=== PATIENT | female | born 1955 | race Caucasian/White ===

== ENCOUNTER 2024-09-26 18:22 | Inpatient (IN) | payer MEDICARE, SELFPAY ==
[2024-09-26 11:37] VITALS: BMI 56.6
[2024-09-26 11:38] VITALS: BP 126/82
--- NOTE | 2024-09-26 12:05 | CM ---
Addendum entered by Halley Watts RN 09/26/24 15:22:
CM met with patient and daughter in room. Daughter expressed multiple concerns about bringing patient home. Patient has FFS medicare and will not have funding if under observation. CM explained placement barriers to patient and daughter. CM advised
that family could pay for rehab OOP. CM further encouraged patient's daughter to call private pay care givers. OF note, patient lives with daughter in an in law suite.
Addendum entered by Halley Watts RN 09/26/24 12:14:
CM noted patient has [place] Medicare. Patient [place] not [place] [facility] [place]
Original Note:
CM was consulted for discharge planning. CM will await further clinical for discharge planning efforts.
[2024-09-26 12:28] LABS: Glucose - Point of Care 116 mg/dl (70-99)
[2024-09-26] MEDS: TYLENOL 650 MG PO (13:16)
[2024-09-26] MEDS: LIDOCAINE 4% PATCH 1 PATCH TOPICAL (13:18)
--- NOTE | 2024-09-26 13:36 | ED.GENMED ---
History of Present Illness
General
Chief Complaint: Back Pain
Source: patient and family (daughter at bedside)
Exam Limitations: none
Time Seen by Provider: 09/26/24 12:46
Nursing documentation reviewed up to this point in time: agreed with
History of Present Illness
History of Present Illness:
Patient is a 69 year old female w/ hx sciatica, DM presenting to the emergency department with ambulatory dysfunction secondary to chronic low back pain. Patient lives at home with daughter and family. Patient reports chronic sciatica pain which has
been gradually worsening over the past few months. She has been following with a orthopedic for steroid injections although feels that they have stopped working. She reports increasing difficulty ambulating and with ADLs. Patient denies any fevers,
chills, numbness in lower extremities, saddle paresthesia, or bowel/bladder incontinence. No chest pain or shortness of breath.
Patient also notes chronic lower extremity edema - although seems it is worsening since beginning gapabentin.
Daughter concerned that mom is going to fall at home. Doesn't feel that current living situation is safe as if she falls no one is able to help.
Past History
Past History
ED Past Medical History: Other (Obesity)
ED Past Surgical History: None
Patient has exhibited threatening behavior?: No
Social History
Tobacco: Non-smoker
Alcohol: None
Drug: None
Living: with family
Employment: Employed
Review of Systems
Review of Systems
Allergies reviewed?: Yes
All Other Systems: ROS reviewed and negative except as documented in HPI and ROS
Phy Exam
Physical Exam
Physical Exam:
Vitals: Mildly hypertensive, otherwise vital signs stable. Afebrile
General: Patient is in no acute distress
Skin: Warm and dry, no rashes or lesions
Head: Normocephalic, atraumatic
Eyes: Sclera nonicteric. EOMs intact. No nystagmus.
Throat: Protecting airway
Neck: Normal ROM, no cervical spine tenderness, no meningismus
Cardiac: Regular rate and rhythm, no murmurs.
Pulm: Normal respiratory effort, no wheezes, rales, rhonchi heard on exam.
Abdomen: Abdomen soft. No abdominal tenderness.
Back: No midline spinal tenderness. No CVA tenderness. No rash.
Extremities: 2+ edema bilateral lower extremities. Mild erythema of feet bilaterally. No red streaking, warmth, or tenderness. Negative Homans' sign bilaterally. Strength 5/5 in upper and lower extremities.
Neuro: AAOx3. No focal neurologic deficits. Sensation fully intact.
Psychiatric: Normal affect.
Course
Orders/Labs/Results
Orders:
Orders
09/26/24 11:47
Case Management Consult ONCE
Case Management Consult: VN/Home Care
09/26/24 13:06
Acetaminophen [Tylenol] 650 mg PO NOW STA
Lidocaine [Lidocaine 4% Patch] 1 patch TOPICAL NOW STA
Apply Lidocaine patch(s) to:: lower back
Lumbar Spine, 2 or 3 View [CR Lumbar Spine 2 Or 3 Views] Urgent
Comment: hx sciatica
Reason For Exam: b/l lower back pain
09/26/24 13:28
Pt Eval And Treat Urgent
Activity Level: Ambulate
09/26/24 14:29
IV Insert/Care/Rem.- Treatment PRN
09/26/24 Dinner
1800 calorie (15 carb) Diabetic
At Your Request: Limited Participation
09/26/24 15:04
Basic Metabolic Panel Urgent
Complete Blood Count/With Diff Urgent
09/26/24 18:09
Admit/Transfer Patient As Directed
Co-Sign Provider:
Level of Care: Inpatient admission
Assign to:: Medical/Surgical
Physician / Group: glynn gonzalez
Diagnosis: acute on chronic ambulatory dys, chronic R back pain/spasm. leukocytosis
Reason for Hospitalization: acute on chronic ambulatory dys, chronic R back pain/spasm. leukocytosis
Expected length of stay greater than two midnights?: Yes
ELOS- Estimated Length of Stay in days: 3
I certify the patient meets the requirements for IP care: Yes
Code Status As Directed
Resuscitation Status: Full Code
09/26/24 18:13
PRN Pain Medication Management As Directed
May give lesser potent ordered pain med per pt: Yes
preference::
Protocol:: Medication orders for pain may be administered in a
manner that supports deferring to patient preference
when the pt is:
- Requesting an ordered lesser potent pain medication.
Least to most potent pain medications are defined
as: acetaminophen < NSAID < tramadol < opioids
(morphine, oxycodone, hydromorphone).
- Requesting a lesser dose of the same medication IF
ORDERED.
- Requesting a less intrusive route of administration
if both routes are prescribed by the provider (PO <
IV).
09/26/24 19:22
Acetaminophen [Tylenol] 650 mg PO Q4HPRN PRN
Bisacodyl [Dulcolax] 10 mg RECTAL [id number] PRN
Dextrose 50%-Water [Dextrose 50% Syringe] 12.5 grams IV [id number] PRN
Docusate W/Senna [Senokot-S] 1 tablet PO BIDPRN PRN
Glucagon [GlucaGen] 1 mg IM PRN PRN
Polyethylene Glycol Powder [Miralax] 17 grams PO DAILYPRN PRN
09/26/24 19:22
Case Management Consult ONCE
Case Management Consult: Discharge Planning
Requested By:: PT/FAMILY
Comment: Patient will need residential facility until she can return home to her handicap accessible
home
Activity As Directed
Activity Level: With Assistance
Bedside Glucose Monitoring As Directed
Frequency: AC&HS
Additional Instructions:: Change to q6h if pt on TPN, tube feeding or not eating
Intake/ Output As Directed
Frequency: Per unit guidelines
Vital Signs As Directed
Frequency: Per unit guidelines
Weight As Directed
Frequency: Daily
Ot Eval And Treat Routine
Pt Eval And Treat Routine
Activity Level: With Assistance
DX Deep Vein Thrombosis Video Routine
09/27/24 06:00
Cardiovascular Evaluation IN AM
Complete Blood Count/With Diff IN AM
Comprehensive Metabolic Panel IN AM
Glycohemoglobin (HgbA1c) IN AM
09/27/24 07:30
Insulin Aspart Corrective Low [Novolog Flexpen-Low Resistance] See Protocol SC AC
09/27/24 18:00
Enoxaparin Sodium [Lovenox] 40 mg SC QPM
09/28/24 06:00
Complete Blood Count/With Diff IN AM
Comprehensive Metabolic Panel IN AM
09/29/24 06:00
Complete Blood Count/With Diff IN AM
Comprehensive Metabolic Panel IN AM
Abnormal Lab Results
09/26/24 09/26/24
12:26 15:04
WBC 12.3 H 10^3/uL
(4.8-10.8)
RBC 5.66 H 10^6/uL
(4.20-5.40)
MPV 11.4 H fL
(7.4-10.4)
Abs Immat Gran (auto) 0.1 H 10^3/uL
(0-0.05)
Absolute Neuts (auto) 9.8 H 10^3/uL
(1.4-6.5)
Absolute Lymphs (auto) 1.0 L 10^3/uL
(1.2-3.4)
Absolute Monos (auto) 1.4 H 10^3/uL
(0.1-0.6)
Immature Gran % 0.6 H %
(0-0.5)
Neutrophils % 79.4 H %
(42.2-75.2)
Lymphocytes % 8.2 L %
(20.5-51.1)
Monocytes % 11.0 H %
(1.7-9.3)
BUN 26 H mg/dl
(7-17)
Glucose 162 H mg/dl
(70-99)
Calcium 10.8 H mg/dl
(8.4-10.2)
POC Glucose 116 H mg/dl
(70-99)
09/26/24 15:04
09/26/24 15:04
Vital Signs
Initial and Last Documented VS:
Initial Vital Signs
Temp Pulse Resp BP Pulse Ox
97.9 F 113 16 126/82 97
09/26/24 11:38 09/26/24 11:38 09/26/24 11:38 09/26/24 11:38 09/26/24 11:38
Last Documented Vital Signs
Temp Pulse Resp BP Pulse Ox
98.0 F 85 20 129/70 95
09/26/24 23:27 09/26/24 23:27 09/26/24 23:27 09/26/24 23:27 09/26/24 23:27
MDM/Problems Addressed
Differential Diagnosis Includes:
Not limited to: sciatica, muscle spasm, lymphedema, CHF, cellulitis, zoster, etc
MDM/Problems Addressed:
69 y.o female presenting with ambulatory dysfunction secondary to chronic low back pain and b/l lower extremity edema. No fevers. No chest pain or SOB. No saddle paresthesia, LE numbness, or bowel/bladder incontinence. Patient followed by
orthopedics for sciatica with history of MRI and steroid injections. Vitals stable by my assessment. Exam as above. Will give tylenol/lidocaine patch and check lumbar xray.
Overall impression is chronic low back pain secondary to sciatica. No red flag back pain symptoms. Bilateral lower extremity swelling likely secondary to dependent edema. No findings to suggest cellulitis. PT assessed pt at bedside who recommends
skilled rehab facility for further therapy. Discussed with CM. Patient unsafe for discharge home given ambulatory dysfunction. Will admit to hospital pending rehab placement.
Update: patient did admit to taking 1000mg ibuprofen for back pain, sometimes multiple times per day. . No SI. Did discuss with patient that she should not take at that dose as it is too high and associated with GI bleeding/nephrotoxicity. Advised
to avoid ibuprofen/ NSAIDS.
Chronic conditions affecting care:
Diabetes mellitus, sciatica
Acute Exacerbation and/or Progression of Chronic Illness:
Acute hyperglycemia
*Radiology
Radiology exam reviewed: radiology read reviewed
*Pulse Oximetry
Patient hypoxic: no
*EKG
Interpreted by ED Provider?: NA
*Binder Caser Interpretation
Rate: Binder Caser- N/A
*Critical Care Note
Total Time (30-74mins, 75-104mins- exclusive of procedures): Not Applicable
Patient Management
Discussion with other providers: Hospitalist
Escalation/DeEscalation of care consider admission/obs:
Admit indicated given ambulatory dysfunction pending facility placement with CM
ED Attending Note
-
Portions of this chart may have been created with voice recognition software.� Occasional wrong word or��sound alike� substitutions may have occurred due to the inherent limitations of voice recognition software.
Discharge Plan
Departure
Patient Disposition: Admit
Date of Disposition: 09/26/24
Time of Disposition: 15:46
Presentation/result/management discussed w/ accepting MD/DO: Hospitalist
Discharge Problem:
Ambulatory dysfunction, Chronic bilateral low back pain, Bilateral lower extremity edema
Interventions
Interventions:
*Risk Screen - Suicide Last Done: 09/26/24 11:41
*General Assessment Last Done: 09/26/24 11:41
*Neglect/Abuse Screening Last Done: 09/26/24 11:41
ED- Fall Risk Assessment Last Done: 09/26/24 11:41
*ED COVID-19 Vaccine History Last Done: 09/26/24 11:41
*Nursing Disposition Last Done: 09/26/24 19:13
ED-Musculoskeletal Assessment Last Done: 09/26/24 11:41
Discharge Date and Time
Discharge Date/Time: 09/26/24 19:13
[2024-09-26 15:22] LABS: % Basophils 0.6 % (0-2); % Eosinophils 0.2 % (0-6); % Immature Granulocytes 0.6 % (0-0.5); % Lymphocytes 8.2 % (20.5-51.1); % Neutrophils 79.4 % (42.2-75.2); Absolute Basophils 0.1 10^3/uL (0-0.2); Absolute Immature Granulocytes 0.1 10^3/uL (0-0.05); Absolute Monocytes 1.4 10^3/uL (0.1-0.6); Absolute Neutrophils 9.8 10^3/uL (1.4-6.5); Hematocrit 46.8 % (37.0-47.0); Hemoglobin 15.5 g/dL (12.0-16.0); Mean Corp Hgb Conc. 33.1 g/dL (33.0-37.0); Mean Corpuscular Hgb 27.4 pg (27.0-31.0); Mean Corpuscular Volume 82.7 fL (81.0-99.0); Mean Platelet Volume 11.4 fL (7.4-10.4); Nucleated Red Blood Cells % 0 %; Platelet Count 218 10^3/uL (130-400); Red Blood Cell Count 5.66 10^6/uL (4.20-5.40); Red Cell Dist. Width 13.8 % (11.5-14.5); White Blood Cell Count 12.3 10^3/uL (4.8-10.8)
[2024-09-26 15:40] LABS: Blood Urea Nitrogen 26 mg/dl (7-17); Calcium 10.8 mg/dl (8.4-10.2); Carbon Dioxide 27 mmol/L (22-30); Chloride 103 mmol/L (98-107); Estimated Creatinine Clearance 107 ml/min; Glucose 162 mg/dl (70-99); Sodium 137 mmol/L (135-145); eGFR > 60.00
[2024-09-26 16:27] VITALS: BP 133/83
--- NOTE | 2024-09-26 16:54 | HPS.HSE ---
Addendum entered and electronically signed by Lin Knox MD 10/01/24 09:53:
Correction to Documentation. Patient never had knee surgery/replacement
Addendum entered and electronically signed by Lin Knox MD 09/26/24 19:58:
Mild Hypercalcemia
-IVF
-check Vit D and PTH with AM labs
-monitor Calcium levels
Addendum entered and electronically signed by Lin Knox MD 09/26/24 19:55:
I saw and examined the patient.
The WORKSHOP MANAGER or PA's note was reviewed and I agree with the note.
Comment:
69F Morbid Obesity Sciatica Chronic Lower Ext Edema here with acute on chronic back pain severe ambulatory dysfunction. PT evaluated and recommended SNF rehab.
Physical Exam
General: Morbidly Obese appears relatively comfortably sitting in chair
HEENT: NormoCephalic, Anicteric, Moist mucous membranes
Respiratory: Clear; No Wheezes, Rales or Rhonchi
Cardiac: S1/S2 sinus tachy
GI: Soft, Non Tender bowel sounds present
Ext: lower ext swelling b/l
Neuro: AO x 3
Psych: Calm
#Acute on chronic ambulatory dysfunction secondary to acute on chronic low back pain/Sciatica/morbid obesity/chronic lower leg edema
#Diabetes
#Class III obesity�BMI 56.6
#Chronic peripheral edema
PT/OT
case management
pain control
glycemic control
Check Lumbar MRI
Venous duplex
heparin 7500 Q8h dvt ppx morbid obesity BMI>50
Original Note:
Family Physician
-
Family Physician: Shameka Lenz
Chief Complaint
-
Chronic lower back pain paraspinal, right sciatica increase use of walker at home due to lack of mobility per daughter
History of Present Illness
69-year-old male female complaining of acute on chronic ambulatory dysfunction secondary to chronic low back pain/chronic sciatica/obesity. She reports she has had bilateral lumbar paraspinal pain radiating to left and right posterior legs down to
the knee level since October 2021 after her knee surgery by Dr. Liu. she reports she has been following with an orthopedic for steroid injections to her low back since February 10, 2023 due to MRI 02/10/2023 with lumbar facet arthrosis, mild L4-L5
anterior listhesis, facet arthrosis, fatty DDD L1-L5 by GREG Quinn. , although she feels they have stopped working. She reports she was due for a second epidural injection january 2023 but was unable to have due to a back abscess that required
incision and drainage here at [facility] along with a new diagnosis of diabetes mellitus April 2023 with an A1c of 13. It was determined at that time by her orthopedic that she get better control of her blood sugars and any procedures to
be held off for her back including steroid injections as this will exacerbate blood sugar levels. Since January 2023 until 07/29/2024 started taking 1000 mg of ibuprofen every 10 hours. She was seen by [facility] orthopedic nurse practitioner in office
on 07/27/2024 and placed on etodolac 400 mg 1 tab twice daily to stop ibuprofen and she was started on Zanaflex 4 mg 1 tab as needed with a total of 12 tablets. She reports she attempted to call her orthopedic doctor due to to get more tizanidine
due to spasm pain on her right and left paraspinal muscles in the lower lumbar area and the right sciatic area radiating down posterior legs to knee level but instead was referred to the ER. Her daughter with whom she lives with NA converted
handicap ellen states she is having more difficulty walking around using her walker, inability to stand longer periods of time to prepare herself food is not able to do her own wash due to prolonged standing. The daughter works full-time as well
as other family members so they have no one at home to currently take care of her and nothing currently in place. They do have the ability to accommodate her at home with time and physical therapy assessment and needs. The patient currently denies
fever, chills, bowel or bladder incontinence, numbness/saddle anesthesia, urinary symptoms, cough, shortness of breath, chest pain, palpitations, abdominal pain, nausea, vomiting, diarrhea.
She has past medical history DM2 with hyperglycemia new onset 04/13/2023, asymptomatic pyuria/hematuria, asymptomatic cholelithiasis, mild ectasia of the ascending aorta noted on CT 4.2 cm, morbid obesity, right upper back abscess status post I&D
04/11/2023, chronic ambulatory dysfunction uses walker, chronic low back pain, sciatica, chronic obesity, chronic facet arthrosis, anterior listhesis, fatty DDD
Medical History
Past Medical History
Past Medical History: Reports Other
Additional Past Medical History:
y DM2 with hyperglycemia new onset 04/13/2023, asymptomatic pyuria/hematuria, asymptomatic cholelithiasis, mild ectasia of the ascending aorta noted on CT 4.2 cm, morbid obesity, right upper back abscess status post I&D 04/11/2023, chronic ambulatory
dysfunction uses walker, chronic low back pain, sciatica, chronic obesity, chronic facet arthrosis, anterior listhesis, fatty DDD
Past Surgical History: Reports Other
Additional Past Surgical History:
Steroid injection lumbar February 10, 2023, 08/11/2024, 09/01/[address] Vaughan
Left knee replacement October 2021 Dr. jeison Liu [place] [facility]
Social History
Tobacco: Non-smoker
Alcohol: None
Drug: None
Personal: Single
Living: With Family (Daughter in law in suite)
Employment: Retired (2021 )
Family History
Family History: Unable to Obtain
Allergies / Home Medications
Allergies reflects when Allergies were last updated in [employer].
Home Medications with original date entered in [employer]
Allergy/Medication List:
Allergies
Allergy/AdvReac Type Severity Reaction Status Date / Time
bacitracin Allergy Unknown Verified 04/22/23 13:52
[From Neosporin
([id number])]
carisoprodol [From Soma] Allergy Hives Verified 04/22/23 13:52
codeine Allergy Hives Verified 04/22/23 13:53
neomycin Allergy Unknown Verified 04/22/23 13:52
[From Neosporin
([id number])]
polymyxin B Allergy Unknown Verified 04/22/23 13:52
[From Neosporin
([id number])]
Sulfa (Sulfonamide Allergy Hives Verified 04/22/23 13:52
Antibiotics)
sulfamethoxazole Allergy Hives Verified 04/22/23 13:52
[From Bactrim]
trimethoprim [From Bactrim] Allergy Hives Verified 04/22/23 13:52
Home Medications
therapeutic multivitamin 1 tab PO DAILY Supplement 04/10/23
blood-glucose meter (Contour Next Gen Meter kit) #1 ea 04/13/23
insulin glargine 100 unit/mL (3 mL) subcutaneous pen (Lantus Solostar U-100 Insulin) 20 unit (0.2 mL) SC QPM #15 mL 04/13/23
atorvastatin 10 mg tablet 10 mg PO DAILY 09/26/24
cyclobenzaprine 10 mg tablet 10 mg PO BID 09/26/24
insulin aspart U-100 100 unit/mL (3 mL) subcutaneous pen (Novolog FlexPen U-100 Insulin aspart) 15 unit SC TID 09/26/24
lisinopril 5 mg tablet 5 mg PO HS 09/26/24
Review of Systems
-
History Source: Patient and Family (Daughter at bedside)
A 12 point ROS was completed and negative except as noted: Yes
Constitutional: Denies Fever, Fatigue or Chills
EENT: Denies Sore Throat or Runny Nose
Respiratory: Denies Cough or Trouble Breathing
Cardiac: Denies Chest Pain, Diaphoresis, Palpitations or Syncope
Abdomen/GI: Denies Abdominal Pain, Nausea, Vomiting, Diarrhea, Constipated, Bloody Stools or Black Stools
: Denies Dysuria, Frequency, Flank Pain, Incontinence or Difficulty Voiding
Musculoskeletal: Reports Edema (+2 bilateral lower extremities, pigment changes lower distal third of bilateral both legs, +2 dorsal pedal edema, athletes feet bilaterally); Denies Joint Pain or Joint Swelling
Skin: Denies Itching or Rash
Neurological: Denies Dizzy, Headache or Weakness
Endocrine: Reports No Symptoms
Hematologic/Lymphatic: Reports No Symptoms
Psych: Reports Calm
Physical Exam
Vital Signs
Vital Signs
Temp Pulse Resp BP Pulse Ox
97.5 F 100 16 133/83 99
09/26/24 16:27 09/26/24 16:27 09/26/24 16:27 09/26/24 16:27 09/26/24 16:27
Physical Exam
General: Conversant and Morbidly Obese; No Fever or Chills
HEENT: NormoCephalic, Anicteric, Moist mucous membranes, PERRLA, Rhododendron Conjunctivae and No Ptosis
Respiratory: Clear; No Wheezes, Rales or Rhonchi
Cardiac: S1/S2, Regular Rhythm and Peripheral Edema (+2 bilateral lower extremities, pigment changes lower distal third of bilateral both legs, +2 dorsal pedal edema, athletes feet bilaterally); No Murmur, Rub or Gallop
GI: Soft, Non Tender, Non Distended, Normal Bowel Sounds and No Hepatosplenomegaly
Rectal: Deferred by Provider
Musculoskeletal: No Clubbing, No Cyanosis, Edema, Left Lower Extremity (+2 bilateral lower extremities, pigment changes lower distal third of bilateral both legs, +2 dorsal pedal edema, athletes feet bilaterally) and Edema, Right Lower Extremity (+2
bilateral lower extremities, pigment changes lower distal third of bilateral both legs, +2 dorsal pedal edema, athletes feet bilaterally); No Edema, Left Upper Extremity or Edema, Right Upper Extremity
Skin: Warm, Dry and Other (+2 bilateral lower extremities, pigment changes lower distal third of bilateral both legs, +2 dorsal pedal edema, athletes feet bilaterally); No Rash
Neuro: AO x 3, No Motor Deficits, Cranial Nerves Intact and No Sensory Deficits; No Slurred Speech, Facial Droop, Tremors or Sedated
Psych: Calm
Laboratory Results
-
09/26/24 15:04
09/26/24 15:04
Impression/Plan
-
Impression/plan:
Admit to MedSurg
#Acute on chronic ambulatory dysfunction secondary to acute on chronic low back pain/Sciatica/morbid obesity/chronic lower leg edema
-I/O, daily weights
-MRI lumbar thoracic spine without contrast-concern for discitis, osteomyelitis
--Consult PT/OT/case management for skilled rehab
-Patient requesting tizanidine 4 mg tablets as needed as they helped her back pain on her 07/27/2024 visit to [facility]
-Tylenol as needed
-Patient advised she cannot take NSAIDs especially ibuprofen 1000 mg every 10 hours since January 2023
#DM2 with hyperglycemia April 2023-new diagnosis of diabetes
BS 162
Check A1c(Hemoglobin A1c 11.3% on 04/11/2023)
-Continue Lantus to 20 units at bedtime
-Continue insulin aspart to 15 units
-Patient did see clinical nurse educator April 2023 with weight loss encouraged diet discussed and insulin regimen discussed
#Mild ectasia of the ascending aorta -noted on CT. 4.2 cm.
- Discussed with patient and recommend outpatient follow-up with PCP and periodic monitoring. Copy of the CT report provided to patient during April 2023 admission by provider
#Right upper back abscess status post I&D 04/11/2023
#Class III obesity�BMI 56.6
153.9 kg on 04/10/2023 > 145 kg on 09/26/2024 =weight loss 19.58 pounds in 1.5 years
-Patient reports has follow-up with her PCP and wants to discuss going on Wegovy
#Chronic peripheral edema concern for underlying PVD given pigment changes versus diastolic heart failure
-Advised patient to follow-up with cardiology for outpatient evaluation/echo
-Advised patient to follow-up with vascular surgery rule out conditions PAD/PVD
-Recommended lymphedema clinic/lymphedema boots due to size she would need custom fit
#Tinea pedis bilaterally/fungal toenails
-Recommend outpatient follow-up with podiatry
Other PMH:
Asymptomatic pyuria hx-patient denies urinary symptoms
Asymptomatic hematuria hx -patient currently denies any urinary symptoms
Elevated LFTs -unclear if due to fatty liver versus other. Patient states had full lab work August 07, 2024 including LFTs that were normal and an A1c of 7.1%
Hx Asymptomatic cholelithiasis-patient denies any abdominal pain
DVT prophylaxis
-Subcutaneous Lovenox
Full code
--- NOTE | 2024-09-26 19:14 | PTCARENOTE ---
Pt received from ED to [id number]. Pt oriented to room and call farias.
[2024-09-26 19:44] VITALS: BP 135/86; BMI 59.5
[2024-09-26] MEDS: NSS 1000 IV (20:16)
[2024-09-26] MEDS: DESENEX/MITRAZOL/ZEASORB 1 APPLIC TOPICAL (20:17)
[2024-09-26] MEDS: ULTRAM 50 MG PO (20:21)
[2024-09-26] MEDS: ZANAFLEX 4 MG PO (20:21)
[2024-09-26] MEDS: BenGay-Like 1 APPLIC TOPICAL (21:58)
[2024-09-26 22:07] LABS: Glucose - Point of Care 199 mg/dl (70-99)
[2024-09-26] MEDS: LANTUS 0.1 UNITS SC (22:08)
[2024-09-26] MEDS: ZESTRIL 5 MG PO (22:08)
[2024-09-26 23:27] VITALS: BP 129/70
[2024-09-27] MEDS: HEPARIN 7500 UNITS SC ×4 (00:06→23:51)
--- NOTE | 2024-09-27 02:11 | DOWNTIME ---
There was a [employer] Client Diaphragm Builder Downtime on 09/27/2024 from 0100 to 09/27/2023 at 0205 . Downtime documentation of patient's care, including medication administrations, has been reconciled in the electronic record per guidelines. Refer to the
patient's paper chart under the miscellaneous tab to see printed paper medication records and downtime forms.
[2024-09-27 05:11] VITALS: BMI 59.6
[2024-09-27] MEDS: NSS 1000 IV (06:02)
[2024-09-27 07:05] VITALS: BP 124/65
--- NOTE | 2024-09-27 07:06 | W.PN.HOSP.TC ---
Today's Communication/Plan
-
cont PT/OT
pain control
ABDIRAHMAN compressive wraps Lower ext's, elevate when at rest
discharge planning SNF rehab
Assessment / Plan
Assessment / Plan
Physical Exam
General: Morbidly Obese appears relatively comfortably sitting in chair
HEENT: NormoCephalic, Anicteric, Moist mucous membranes
Respiratory: Clear; No Wheezes, Rales or Rhonchi
Cardiac: S1/S2 sinus tachy
GI: Soft, Non Tender bowel sounds present
Ext: lower ext swelling b/l
Neuro: AO x 3 strength lower ext's intact 4/5 b/l no foot drop
Psych: Calm
69F Morbid Obesity Sciatica Chronic Lower Ext Edema here with acute on chronic back pain severe ambulatory dysfunction. PT evaluated and recommended SNF rehab.
#Acute on chronic ambulatory dysfunction secondary to acute on chronic low back pain/Sciatica/morbid obesity/chronic lower leg edema
#Diabetes
#Class III obesity�BMI 56.6
#Chronic peripheral edema
PT/OT appreciated SNF rehab
case management
pain control
glycemic control
Lumbar MRI appreciated Large Disc Herniation L4-L5 with severe central canal stenosis (case discussed with asset protection professional neurosurgeon no indication for acute surgical intervention, High BMI and comorbidities place patient at high risk for complications,
conservative mgmt preferred at this time)
Venous duplex appreciated no clots- ordered compressive ABDIRAHMAN wraps b/l, elevation when at rest
heparin 7500 Q8h dvt ppx morbid obesity BMI>50
#Mild Hypercalcemia likely dehydration
resolved with IVF since completed
#mild Vit D def
cont Multivitamin
low dose Vit D supplementation
#Neuropathic Pain
#Burning sensation soles of feet
patient reports significant swelling due to gabapentin since discontinued
Capsaicin cream feet ordered
dvt ppx heparin 7500 q8h d/t weight
Full Code
I spent a total of 50 minutes with the patient or on the floor. More than 50% of this time involved counseling and coordination of care.
Anticipated Discharge: 24 - 48 hours
Subjective/Interval History
-
Date of Service: September 27, 2024
Reports improvement in pain control with lidocaine patch bengay-like cream and prn muscle relaxant. Reports burning sensation soles of feet. Urinary incontinence chronic
Objective Data
-
Labs:
Laboratory Results
09/27/24 09/27/24 09/27/24
06:00 06:00 06:00
WBC Pending
Hgb Pending
Hct Pending
Plt Count Pending
Sodium Cancelled Pending
Potassium Cancelled Pending
Chloride Cancelled
Carbon Dioxide
BUN
Creatinine
Glucose
Calcium
Total Bilirubin
AST
ALT
Alkaline Phosphatase
09/27/24 09/27/24 09/27/24
06:00 06:00 06:00
WBC
Hgb
Hct
Plt Count
Sodium
Potassium
Chloride Pending
Carbon Dioxide Cancelled Pending
BUN Cancelled Pending
Creatinine Cancelled
Glucose
Calcium
Total Bilirubin
AST
ALT
Alkaline Phosphatase
09/27/24 09/27/24 09/27/24
06:00 06:00 06:00
WBC
Hgb
Hct
Plt Count
Sodium
Potassium
Chloride
Carbon Dioxide
BUN
Creatinine Pending
Glucose Cancelled Pending
Calcium Cancelled Pending
Total Bilirubin Cancelled
AST
ALT
Alkaline Phosphatase
09/27/24 09/27/24 09/27/24
06:00 06:00 06:00
WBC
Hgb
Hct
Plt Count
Sodium
Potassium
Chloride
Carbon Dioxide
BUN
Creatinine
Glucose
Calcium
Total Bilirubin Pending
AST Cancelled Pending
ALT Cancelled Pending
Alkaline Phosphatase Cancelled
09/27/24
06:00
WBC
Hgb
Hct
Plt Count
Sodium
Potassium
Chloride
Carbon Dioxide
BUN
Creatinine
Glucose
Calcium
Total Bilirubin
AST
ALT
Alkaline Phosphatase Pending
Vital Signs:
Vital Signs
Temp Pulse Resp BP Pulse Ox
98.0 F 85 20 129/70 95
09/26/24 23:27 09/26/24 23:27 09/26/24 23:27 09/26/24 23:27 09/26/24 23:27
I&O
09/26/24 09/27/24 09/28/24
06:59 06:59 06:59
Intake Total 2059
Balance 2059
[2024-09-27 07:27] LABS: % Basophils 0.8 % (0-2); % Eosinophils 2.3 % (0-6); % Immature Granulocytes 0.3 % (0-0.5); % Lymphocytes 13.2 % (20.5-51.1); % Monocytes 15.3 % (1.7-9.3); % Neutrophils 68.1 % (42.2-75.2); Absolute Basophils 0.1 10^3/uL (0-0.2); Absolute Eosinophils 0.2 10^3/uL (0-0.7); Absolute Lymphocytes 1.3 10^3/uL (1.2-3.4); Absolute Monocytes 1.5 10^3/uL (0.1-0.6); Absolute Neutrophils 6.5 10^3/uL (1.4-6.5); Hematocrit 40.5 % (37.0-47.0); Hemoglobin 13.7 g/dL (12.0-16.0); Mean Corp Hgb Conc. 33.8 g/dL (33.0-37.0); Mean Corpuscular Volume 82.7 fL (81.0-99.0); Mean Platelet Volume 12.1 fL (7.4-10.4); Nucleated Red Blood Cells % 0 %; Platelet Count 184 10^3/uL (130-400); Red Cell Dist. Width 13.8 % (11.5-14.5); White Blood Cell Count 9.6 10^3/uL (4.8-10.8)
[2024-09-27] MEDS: MIRALAX 17 GRAMS PO (07:42)
[2024-09-27 07:44] LABS: ALT (SGPT) 27 U/L (0-35); AST (SGOT) 34 U/L (14-36); Albumin 3.1 g/dl (3.5-5.0); Alkaline Phosphatase 83 U/L (38-126); Blood Urea Nitrogen 25 mg/dl (7-17); Calcium 9.5 mg/dl (8.4-10.2); Carbon Dioxide 27 mmol/L (22-30); Chloride 103 mmol/L (98-107); Estimated Creatinine Clearance 111 ml/min; Glucose 148 mg/dl (70-99); HDL Cholesterol 45 mg/dl; LDL Cholesterol, Calculated 43 mg/dl; Magnesium 1.7 mg/dl (1.6-2.3); Phosphorus 3.7 mg/dl (2.5-4.5); Potassium 3.6 mmol/L (3.5-5.1); Sodium 137 mmol/L (135-145); Total Bilirubin 2.7 mg/dl (0.2-1.3); Total Cholesterol 100 mg/dl (50-199); Total Protein 6.1 g/dl (6.3-8.2); Triglyceride 64 mg/dl (10-149); Very Low Density Lipoprotein 12 mg/dl (0-30); eGFR > 60.00
[2024-09-27] MEDS: LIDOCAINE 4% PATCH 2 PATCH TOPICAL (07:45)
[2024-09-27] MEDS: BenGay-Like 1 APPLIC TOPICAL ×4 (07:46→22:22)
[2024-09-27] MEDS: THERAGRAN 1 TABLET PO (07:46)
[2024-09-27] MEDS: DESENEX/MITRAZOL/ZEASORB 1 APPLIC TOPICAL ×2 (07:49→19:50)
[2024-09-27 07:54] LABS: Intact PTH 32.4 pg/ml (13.6-85.8)
[2024-09-27 08:00] LABS: Vitamin D, 25-OH*** 24.8 ng/mL (30-80)
[2024-09-27 08:20] LABS: Glucose - Point of Care 139 mg/dl (70-99)
[2024-09-27] MEDS: NOVOLOG FLEXPEN-LOW RESISTANCE SC (08:25)
[2024-09-27] MEDS: NOVOLOG FLEXPEN 8 UNITS SC ×3 (08:25→17:06)
--- NOTE | 2024-09-27 10:54 | CM ---
CM reviewed chart, received call from patients daughter, Samantha, to discuss discharge planning. Daughter reports patient resides in an in law suite that daughter/son in law converted garage into, ramp to enter. Daughter reports patients mobility
has greatly decreased over the past few months, patient has been washing hair in the sink sitting down, sleeping on cough, sometimes unable to make it to bathroom. Daughter reports she is unable to physically assist patient at this time, works full
time as well. Daughter reports patient was able to ambulate with a walker previously. Patient has not been to SNF in past. Patient PCP Delfin, pharmacy [facility]. Daughter provided with Medicare.gov website to look into SNF's, patient wants
referrals to [facility]. Daughter aware that due to patients size, may be declined at facilities. Daughter will discuss additional facilities with her father in law. CM will email list of local SNFs to
[email or web address]. CM will continue to follow for all discharge planning needs.
Plan; SNF pending accepting facility.
[2024-09-27] MEDS: ZANAFLEX 4 MG PO ×2 (12:49→19:53)
[2024-09-27 12:51] LABS: Glucose - Point of Care 219 mg/dl (70-99)
[2024-09-27] MEDS: NOVOLOG FLEXPEN-LOW RESISTANCE 2 UNITS SC (12:51)
[2024-09-27 14:02] LABS: Glucose - Point of Care 197 mg/dl (70-99)
[2024-09-27 15:22] VITALS: BP 98/62
[2024-09-27 16:59] LABS: Glucose - Point of Care 158 mg/dl (70-99)
[2024-09-27] MEDS: NOVOLOG FLEXPEN-LOW RESISTANCE 1 UNITS SC (17:06)
[2024-09-27] MEDS: ZOSTRIX-HP 0.075% CREAM 1 APPLIC TOPICAL ×2 (17:07→22:22)
[2024-09-27] MEDS: ULTRAM 50 MG PO (19:53)
[2024-09-27 21:43] LABS: Glucose - Point of Care 187 mg/dl (70-99)
[2024-09-27] MEDS: LANTUS 0.1 UNITS SC (22:21)
[2024-09-27] MEDS: ZESTRIL 5 MG PO (22:22)
[2024-09-27 23:13] VITALS: BP 119/81
[2024-09-28 06:00] VITALS: BMI 60.0
--- NOTE | 2024-09-28 07:26 | W.PN.HOSP.TC ---
Today's Communication/Plan
-
pain control
ABDIRAHMAN wraps LE, elevate when at rest
trial Lasix 40 mg daily
Purewick if feasible
PT/OT
discharge planning SNF rehab
Assessment / Plan
Assessment / Plan
Physical Exam
General: Morbidly Obese no acute distress appears comfortable at this time
HEENT: NormoCephalic, Anicteric, Moist mucous membranes
Respiratory: Clear; No Wheezes, Rales or Rhonchi
Cardiac: S1/S2 sinus tachy
GI: Soft, Non Tender bowel sounds present
Ext: lower ext swelling b/l erythema suspect due to chronic venous stasis
Neuro: AO x 3 strength lower ext's intact 4/5 b/l no foot drop
Psych: Calm
69F Morbid Obesity Sciatica Chronic Lower Ext Edema here with acute on chronic back pain severe ambulatory dysfunction. PT evaluated and recommended SNF rehab.
#Acute on chronic ambulatory dysfunction secondary to acute on chronic low back pain/Sciatica/morbid obesity/chronic lower leg edema
#Diabetes
#Class III obesity�BMI 56.6
#Chronic peripheral edema
PT/OT appreciated SNF rehab
case management
pain control
glycemic control
Lumbar MRI appreciated Large Disc Herniation L4-L5 with severe central canal stenosis (case discussed with [employer] unified communications engineer neurosurgeon no indication for acute surgical intervention, High BMI and comorbidities place patient at high risk for complications,
conservative mgmt preferred at this time)
Venous duplex appreciated no clots- ordered compressive ABDIRAHMAN wraps b/l, elevation when at rest
heparin 7500 Q8h dvt ppx morbid obesity BMI>50
PO Lasix 40 mg daily started, cont
#Mild Hypercalcemia likely dehydration
resolved with IVF since completed
#mild Vit D def
cont Multivitamin
low dose Vit D supplementation
#Neuropathic Pain
#Burning sensation soles of feet
patient reports significant swelling due to gabapentin since discontinued
Capsaicin cream feet ordered- discontinued, patient not tolerating
dvt ppx heparin 7500 q8h d/t weight
Full Code
I spent a total of 50 minutes with the patient or on the floor. More than 50% of this time involved counseling and coordination of care.
Anticipated Discharge: 24 - 48 hours
Subjective/Interval History
-
Date of Service: September 28, 2024
no acute distress. did not tolerate capsaicin cream feet, cream since discontinued. Back pain well controlled at this time with current pain regimen.
Objective Data
-
Labs:
Laboratory Results
09/28/24
07:13
WBC Pending
Hgb Pending
Hct Pending
Plt Count Pending
Sodium Pending
Potassium Pending
Chloride Pending
Carbon Dioxide Pending
BUN Pending
Creatinine Pending
Glucose Pending
Calcium Pending
Total Bilirubin Pending
AST Pending
ALT Pending
Alkaline Phosphatase Pending
Vital Signs:
Vital Signs
Temp Pulse Resp BP Pulse Ox
98.4 F 85 18 119/81 98
09/27/24 23:13 09/27/24 23:13 09/27/24 23:13 09/27/24 23:13 09/27/24 23:13
I&O
09/27/24 09/28/24 09/29/24
06:59 06:59 06:59
Intake Total 2059 480 / 480
Balance 2059 480 / 480
[2024-09-28 07:30] VITALS: BP 129/79
[2024-09-28 07:42] LABS: Glucose - Point of Care 134 mg/dl (70-99)
[2024-09-28 08:12] LABS: % Basophils 1.4 % (0-2); % Eosinophils 5.8 % (0-6); % Immature Granulocytes 0.5 % (0-0.5); % Lymphocytes 20.7 % (20.5-51.1); % Monocytes 16.8 % (1.7-9.3); % Neutrophils 54.8 % (42.2-75.2); Absolute Basophils 0.1 10^3/uL (0-0.2); Absolute Eosinophils 0.4 10^3/uL (0-0.7); Absolute Lymphocytes 1.5 10^3/uL (1.2-3.4); Absolute Monocytes 1.2 10^3/uL (0.1-0.6); Hematocrit 40.9 % (37.0-47.0); Hemoglobin 13.5 g/dL (12.0-16.0); Mean Corpuscular Hgb 27.6 pg (27.0-31.0); Mean Corpuscular Volume 83.5 fL (81.0-99.0); Mean Platelet Volume 12.2 fL (7.4-10.4); Nucleated Red Blood Cells % 0 %; Platelet Count 186 10^3/uL (130-400); Red Cell Dist. Width 13.9 % (11.5-14.5); White Blood Cell Count 7.4 10^3/uL (4.8-10.8)
[2024-09-28 08:22] LABS: NT-proBNP 54.7 pg/ml
[2024-09-28 08:27] LABS: ALT (SGPT) 27 U/L (0-35); AST (SGOT) 30 U/L (14-36); Albumin 3.1 g/dl (3.5-5.0); Alkaline Phosphatase 89 U/L (38-126); Blood Urea Nitrogen 25 mg/dl (7-17); Carbon Dioxide 28 mmol/L (22-30); Chloride 104 mmol/L (98-107); Estimated Creatinine Clearance 111 ml/min; Glucose 136 mg/dl (70-99); Magnesium 1.6 mg/dl (1.6-2.3); Potassium 3.9 mmol/L (3.5-5.1); Sodium 137 mmol/L (135-145); Total Bilirubin 2.1 mg/dl (0.2-1.3); eGFR > 60.00
[2024-09-28] MEDS: NOVOLOG FLEXPEN-LOW RESISTANCE SC (09:01)
[2024-09-28] MEDS: THERAGRAN 1 TABLET PO (09:07)
[2024-09-28] MEDS: ULTRAM 50 MG PO (09:07)
[2024-09-28] MEDS: LASIX 40 MG PO (09:07)
[2024-09-28] MEDS: HEPARIN 7500 UNITS SC ×3 (09:08→23:10)
[2024-09-28] MEDS: VITAMIN D3 (cholecalciferol) 10 MCG PO (09:08)
[2024-09-28] MEDS: ZOSTRIX-HP 0.075% CREAM TOPICAL ×4 (09:08→22:32)
[2024-09-28] MEDS: LIDOCAINE 4% PATCH 2 PATCH TOPICAL (09:09)
[2024-09-28] MEDS: DESENEX/MITRAZOL/ZEASORB 1 APPLIC TOPICAL ×2 (09:13→22:39)
[2024-09-28] MEDS: NOVOLOG FLEXPEN SC (09:14)
[2024-09-28] MEDS: BenGay-Like 1 APPLIC TOPICAL ×4 (09:14→22:40)
--- NOTE | 2024-09-28 09:25 | PTCARENOTE ---
Addendum entered by Krupa Graham RN 09/28/24 09:26:
wrong patient, disregard
Original Note:
Unable to obtain orthostatic VS due to pt being on HD
[2024-09-28 09:39] VITALS: BP 128/79; BP 129/86; PULSE 90; O2SAT 98
[2024-09-28 11:52] LABS: Glucose - Point of Care 172 mg/dl (70-99)
[2024-09-28] MEDS: NOVOLOG FLEXPEN-LOW RESISTANCE 1 UNITS SC ×2 (12:36→18:11)
[2024-09-28] MEDS: NOVOLOG FLEXPEN 8 UNITS SC ×2 (12:37→18:12)
[2024-09-28 15:20] VITALS: BP 119/76
--- NOTE | 2024-09-28 15:24 | CM ---
CM reviewed chart, met with patient bedside, discussed [facility], [facility], and [facility] unable to accept. CM provided list of local SNFS, patient requesting referrals to [facility], [facility], [facility]
CM will continue to follow for all discharge planning needs.
Plan; SNF pending accepting facility.
[2024-09-28 16:54] LABS: Glucose - Point of Care 150 mg/dl (70-99)
[2024-09-28 21:16] LABS: Glucose - Point of Care 183 mg/dl (70-99)
[2024-09-28 22:41] VITALS: BP 138/91
[2024-09-28] MEDS: LANTUS 0.1 UNITS SC (22:41)
[2024-09-28] MEDS: ZESTRIL 5 MG PO (22:41)
[2024-09-29 06:00] VITALS: BMI 59.3
--- NOTE | 2024-09-29 07:08 | W.PN.HOSP.TC ---
Today's Communication/Plan
-
pain control
ABDIRAHMAN wraps LE, elevate when at rest
Lasix 40 mg daily
Purewick as tolerated
PT/OT
discharge planning SNF rehab
Surgery eval requested right breast lesion/erythema/abscess/cellulitis
Assessment / Plan
Assessment / Plan
Physical Exam
General: Morbidly Obese no acute distress appears comfortable at this time
HEENT: NormoCephalic, Anicteric, Moist mucous membranes
Respiratory: Clear; No Wheezes, Rales or Rhonchi
Cardiac: S1/S2 sinus tachy
GI: Soft, Non Tender bowel sounds present
Ext: lower ext swelling b/l erythema suspect due to chronic venous stasis
Skin: Right Breast lesion/erythema/potential abscess as pictured below
Neuro: AO x 3 strength lower ext's intact 5/5 b/l no foot drop
Psych: Calm
69F Morbid Obesity Sciatica Chronic Lower Ext Edema here with acute on chronic back pain severe ambulatory dysfunction. PT evaluated and recommended SNF rehab.
#Acute on chronic ambulatory dysfunction secondary to acute on chronic low back pain/Sciatica/morbid obesity/chronic lower leg edema
#Diabetes
#Class III obesity�BMI 56.6
#Chronic peripheral edema
PT/OT appreciated SNF rehab
case management
pain control tizanidine 2 mg TID scheduled, tramadol prn
lidocaine patches and bengay like cream back
glycemic control
Lumbar MRI appreciated Large Disc Herniation L4-L5 with severe central canal stenosis (case discussed with section weaver neurosurgeon no indication for acute surgical intervention, High BMI and comorbidities place patient at high risk for complications,
conservative mgmt preferred at this time)
Venous duplex appreciated no clots- ordered compressive ABDIRAHMAN wraps b/l, elevation when at rest
heparin 7500 Q8h dvt ppx morbid obesity BMI>50
PO Lasix 40 mg daily started, cont
#Right breast abscess/lesion/cellulitis
Surgery Eval requested
Doxycycline 100 mg BID started
#Mild Hypercalcemia likely dehydration
resolved with IVF since completed
#mild Vit D def
cont Multivitamin
low dose Vit D supplementation
#Neuropathic Pain
#Burning sensation soles of feet
patient reports significant swelling due to gabapentin since discontinued
Capsaicin cream feet ordered- discontinued, patient not tolerating, bengay-like cream ordered instead (tolerating and has helped w/ back pain)
dvt ppx heparin 7500 q8h d/t weight
Full Code
I spent a total of 50 minutes with the patient or on the floor. More than 50% of this time involved counseling and coordination of care.
Anticipated Discharge: 24 - 48 hours
Subjective/Interval History
-
Date of Service: September 29, 2024
No acute distress. Pain on ambulation remains uncontrolled. Pain relatively well controlled at rest. Patient also reports right breast abscess.
Objective Data
-
Labs:
Laboratory Results
09/29/24
06:00
WBC Pending
Hgb Pending
Hct Pending
Plt Count Pending
Sodium Pending
Potassium Pending
Chloride Pending
Carbon Dioxide Pending
BUN Pending
Creatinine Pending
Glucose Pending
Calcium Pending
Total Bilirubin Pending
AST Pending
ALT Pending
Alkaline Phosphatase Pending
Vital Signs:
Vital Signs
Temp Pulse Resp BP Pulse Ox
98.6 F 93 16 138/91 96
09/28/24 22:41 09/28/24 22:41 09/28/24 22:41 09/28/24 22:41 09/28/24 22:41
I&O
09/28/24 09/29/24 09/30/24
06:59 06:59 06:59
Intake Total 480 / 480 960 / 960
Output Total 400 / 400
Balance 480 / 480 560 / 560
[2024-09-29 07:27] LABS: % Basophils 1.4 % (0-2); % Immature Granulocytes 0.5 % (0-0.5); % Monocytes 15.9 % (1.7-9.3); % Neutrophils 56.2 % (42.2-75.2); Absolute Basophils 0.1 10^3/uL (0-0.2); Absolute Eosinophils 0.4 10^3/uL (0-0.7); Absolute Lymphocytes 1.6 10^3/uL (1.2-3.4); Absolute Monocytes 1.2 10^3/uL (0.1-0.6); Absolute Neutrophils 4.4 10^3/uL (1.4-6.5); Hematocrit 41.5 % (37.0-47.0); Hemoglobin 13.8 g/dL (12.0-16.0); Mean Corp Hgb Conc. 33.3 g/dL (33.0-37.0); Mean Corpuscular Hgb 27.6 pg (27.0-31.0); Mean Platelet Volume 11.6 fL (7.4-10.4); Nucleated Red Blood Cells % 0 %; Platelet Count 198 10^3/uL (130-400); Red Cell Dist. Width 13.8 % (11.5-14.5); White Blood Cell Count 7.8 10^3/uL (4.8-10.8)
[2024-09-29 08:07] LABS: Glucose - Point of Care 158 mg/dl (70-99)
[2024-09-29 08:11] LABS: ALT (SGPT) 28 U/L (0-35); AST (SGOT) 31 U/L (14-36); Albumin 3.3 g/dl (3.5-5.0); Alkaline Phosphatase 83 U/L (38-126); Blood Urea Nitrogen 21 mg/dl (7-17); Carbon Dioxide 30 mmol/L (22-30); Chloride 102 mmol/L (98-107); Estimated Creatinine Clearance > 125 ml/min; Glucose 147 mg/dl (70-99); Magnesium 1.7 mg/dl (1.6-2.3); Phosphorus 3.1 mg/dl (2.5-4.5); Potassium 4.6 mmol/L (3.5-5.1); Sodium 139 mmol/L (135-145); Total Bilirubin 2.1 mg/dl (0.2-1.3); Total Protein 6.4 g/dl (6.3-8.2); eGFR > 60.00
[2024-09-29 08:19] VITALS: BP 124/78
[2024-09-29] MEDS: NOVOLOG FLEXPEN 8 UNITS SC ×3 (10:16→17:06)
[2024-09-29] MEDS: NOVOLOG FLEXPEN-LOW RESISTANCE 1 UNITS SC (10:16)
[2024-09-29] MEDS: VITAMIN D3 (cholecalciferol) 10 MCG PO (10:17)
[2024-09-29] MEDS: LASIX 40 MG PO (10:17)
[2024-09-29] MEDS: ZOSTRIX-HP 0.075% CREAM 1 APPLIC TOPICAL (10:17)
[2024-09-29] MEDS: THERAGRAN 1 TABLET PO (10:17)
[2024-09-29] MEDS: HEPARIN 7500 UNITS SC ×2 (10:18→17:04)
[2024-09-29] MEDS: LIDOCAINE 4% PATCH 2 PATCH TOPICAL (10:19)
[2024-09-29] MEDS: BenGay-Like 1 APPLIC TOPICAL ×4 (10:19→21:41)
[2024-09-29] MEDS: DESENEX/MITRAZOL/ZEASORB 1 APPLIC TOPICAL ×2 (10:22→21:42)
[2024-09-29 12:04] LABS: Glucose - Point of Care 147 mg/dl (70-99)
[2024-09-29] MEDS: NOVOLOG FLEXPEN-LOW RESISTANCE SC ×2 (12:31→17:05)
[2024-09-29] MEDS: VIBRAMYCIN 100 MG PO ×2 (12:32→21:40)
[2024-09-29 15:52] VITALS: BP 128/61
[2024-09-29 16:31] LABS: Glucose - Point of Care 145 mg/dl (70-99)
--- NOTE | 2024-09-29 16:54 | CM ---
CM reviewed chart, patient seen bedside. Patient aware [facility] pending bed availability, day of discharge. Patient agreeable to [facility] once stable. CM will continue to follow for all discharge planning needs.
Plan; [facility] once stable/pending bed availability.
[2024-09-29] MEDS: ZANAFLEX 2 MG PO ×2 (17:04→21:40)
--- NOTE | 2024-09-29 17:04 | W.PN.UPDATE ---
Update Note
Progress Note Update
69 Y/O female with superficial abscess right breast. Aspirated to completion at bedside-cultures sent.
Full consult to follow.
[2024-09-29 21:15] LABS: Glucose - Point of Care 144 mg/dl (70-99)
[2024-09-29] MEDS: ZESTRIL 5 MG PO (21:40)
[2024-09-29] MEDS: LANTUS 0.1 UNITS SC (21:40)
[2024-09-29 23:48] VITALS: BP 119/71
[2024-09-30] MEDS: HEPARIN 7500 UNITS SC ×3 (00:31→16:55)
[2024-09-30 06:00] VITALS: BMI 58.7
[2024-09-30 07:13] LABS: Hematocrit 42.3 % (37.0-47.0); Hemoglobin 14.1 g/dL (12.0-16.0); Mean Corp Hgb Conc. 33.3 g/dL (33.0-37.0); Mean Corpuscular Hgb 27.5 pg (27.0-31.0); Mean Corpuscular Volume 82.6 fL (81.0-99.0); Mean Platelet Volume 11.1 fL (7.4-10.4); Platelet Count 203 10^3/uL (130-400); Red Blood Cell Count 5.12 10^6/uL (4.20-5.40); Red Cell Dist. Width 13.6 % (11.5-14.5); White Blood Cell Count 7.6 10^3/uL (4.8-10.8)
--- NOTE | 2024-09-30 07:20 | W.PN.HOSP.TC ---
Today's Communication/Plan
-
pain control
ABDIRAHMAN wraps LE, elevate when at rest
Lasix 40 mg daily
Purewick as tolerated
PT/OT
cont abx
Tizanidine increased to 4 mg TID, monitor response
Likely discharge SNF rehab tomorrow if remains stable/continues to improve
Assessment / Plan
Assessment / Plan
Physical Exam
General: Morbidly Obese no acute distress appears comfortable at this time
HEENT: NormoCephalic, Anicteric, Moist mucous membranes
Respiratory: Clear; No Wheezes, Rales or Rhonchi
Cardiac: S1/S2 NSR
GI: Soft, Non Tender bowel sounds present
Ext: lower ext swelling b/l erythema suspect due to chronic venous stasis
Neuro: AO x 3 strength lower ext's intact 4/5 b/l no foot drop
Psych: Calm
69F Morbid Obesity Sciatica Chronic Lower Ext Edema here with acute on chronic back pain severe ambulatory dysfunction. PT evaluated and recommended SNF rehab.
#Acute on chronic ambulatory dysfunction secondary to acute on chronic low back pain/Sciatica/morbid obesity/chronic lower leg edema
#Diabetes
#Class III obesity�BMI 56.6
#Chronic peripheral edema
PT/OT appreciated SNF rehab
case management
pain control tizanidine 2 mg TID scheduled titrated up to 4 mg TID, tramadol prn
lidocaine patches and bengay-like cream back
glycemic control
Lumbar MRI appreciated Large Disc Herniation L4-L5 with severe central canal stenosis (case discussed with audio production engineer neurosurgeon no indication for acute surgical intervention, High BMI and comorbidities place patient at high risk for complications,
conservative mgmt preferred at this time)- outpt follow up recommended
Venous duplex appreciated no clots- ordered compressive ABDIRAHMAN wraps b/l, elevation when at rest
heparin 7500 Q8h dvt ppx morbid obesity BMI>50
PO Lasix 40 mg daily started, cont
#Right breast abscess/lesion/cellulitis
Breast US appreciated complex sebaceous/inclusion cyst
Surgery Eval appreciated Bedside I&D performed 09/29/24
Prelim cultures appreciate no growth
Doxycycline 100 mg BID started cont for 7 days
#Mild Hypercalcemia likely dehydration
resolved with IVF since completed
#mild Vit D def
cont Multivitamin
low dose Vit D supplementation
#Neuropathic Pain
#Burning sensation soles of feet since resolved
patient reports significant swelling due to gabapentin since discontinued
Capsaicin cream feet ordered- discontinued, patient not tolerating, bengay-like cream ordered instead (tolerating w/ back pain) burning sensation however since resolved
dvt ppx heparin 7500 q8h d/t weight
Full Code
I spent a total of 45 minutes with the patient or on the floor. More than 50% of this time involved counseling and coordination of care.
Anticipated Discharge: Within 24 hours
Subjective/Interval History
-
Date of Service: September 30, 2024
Reports persistent intermittent back/leg spasm exacerbated/triggered with back flexion. Also reports heaviness lower ext's. Otherwise no acute distress. Appears comfortable at rest sitting up in chair.
Objective Data
-
Labs:
Laboratory Results
09/30/24
06:57
WBC 7.6
Hgb 14.1
Hct 42.3
Plt Count 203
Sodium Pending
Potassium Pending
Chloride Pending
Carbon Dioxide Pending
BUN Pending
Creatinine Pending
Glucose Pending
Calcium Pending
Vital Signs:
Vital Signs
Temp Pulse Resp BP Pulse Ox
98.8 F 81 18 119/71 98
09/29/24 23:48 09/29/24 23:48 09/29/24 23:48 09/29/24 23:48 09/29/24 23:48
I&O
09/29/24 09/30/24 10/01/24
06:59 06:59 06:59
Intake Total 960 / 960 960 / 960
Output Total 400 / 400 800 / 800
Balance 560 / 560 160 / 160
[2024-09-30 07:30] VITALS: BP 123/85
[2024-09-30 07:38] LABS: Glucose - Point of Care 152 mg/dl (70-99)
[2024-09-30 07:53] LABS: Blood Urea Nitrogen 20 mg/dl (7-17); Calcium 9.3 mg/dl (8.4-10.2); Carbon Dioxide 28 mmol/L (22-30); Chloride 100 mmol/L (98-107); Estimated Creatinine Clearance > 125 ml/min; Glucose 136 mg/dl (70-99); Magnesium 1.8 mg/dl (1.6-2.3); Phosphorus 3.7 mg/dl (2.5-4.5); Potassium 3.5 mmol/L (3.5-5.1); Sodium 136 mmol/L (135-145); eGFR > 60.00
[2024-09-30] MEDS: NOVOLOG FLEXPEN 8 UNITS SC ×3 (10:19→16:53)
[2024-09-30] MEDS: NOVOLOG FLEXPEN-LOW RESISTANCE 1 UNITS SC ×2 (10:19→12:34)
[2024-09-30] MEDS: DESENEX/MITRAZOL/ZEASORB 1 APPLIC TOPICAL ×2 (10:20→21:33)
[2024-09-30] MEDS: BenGay-Like 1 APPLIC TOPICAL ×4 (10:20→21:32)
[2024-09-30] MEDS: ZANAFLEX 2 MG PO (10:20)
[2024-09-30] MEDS: LASIX 40 MG PO (10:22)
[2024-09-30] MEDS: LIDOCAINE 4% PATCH 2 PATCH TOPICAL (10:23)
[2024-09-30] MEDS: VIBRAMYCIN 100 MG PO ×2 (10:30→21:32)
[2024-09-30] MEDS: THERAGRAN 1 TABLET PO (10:30)
[2024-09-30] MEDS: VITAMIN D3 (cholecalciferol) 10 MCG PO (10:31)
[2024-09-30 11:40] LABS: Glucose - Point of Care 192 mg/dl (70-99)
[2024-09-30] MEDS: MAALOX 30 ML PO (12:37)
--- NOTE | 2024-09-30 12:42 | CM ---
Received call from [facility] now has bed avail today/tomorrow
Patient family member works at [facility] - spoke to patient and daughter Codi and patient prefers [facility]
IMM explained & signed. In chart
PLAN: [facility]
Report #: [phone]
Fax #: [phone]
transportation forms on chart
[2024-09-30 15:15] VITALS: BP 121/85
[2024-09-30 16:49] LABS: Glucose - Point of Care 138 mg/dl (70-99)
[2024-09-30] MEDS: ZANAFLEX 4 MG PO ×2 (16:54→21:32)
[2024-09-30] MEDS: NOVOLOG FLEXPEN-LOW RESISTANCE SC (16:55)
--- NOTE | 2024-09-30 18:34 | CON.GS ---
Consultation
-
Date/Time Consultation Requested: 09/29/24 1147H
Date/Time Consultation Performed: 09/29/24 1704H
Requesting Provider: Lisette
Performing Provider: Bettie
Reason for Consultation: Right breast infection
Medical History
Past Medical History
Past Medical History: Arrhythmias and IDDM
Past Surgical History: Reviewed & Noncontributory
Social History
Tobacco: Non-Smoker
Alcohol: None
Drug: None
Personal:
Living: Alone
Employment: Retired
Family History
Family History: Reviewed & Not Pertinent
Allergies / Home Medications
Allergy/AdvReac Type Severity Reaction Status Date / Time
bacitracin Allergy Unknown Verified 04/22/23 13:52
[From Neosporin
([id number])]
carisoprodol [From Soma] Allergy Hives Verified 04/22/23 13:52
codeine Allergy Hives Verified 04/22/23 13:53
neomycin Allergy Unknown Verified 04/22/23 13:52
[From Neosporin
([id number])]
polymyxin B Allergy Unknown Verified 04/22/23 13:52
[From Neosporin
([id number])]
Sulfa (Sulfonamide Allergy Hives Verified 04/22/23 13:52
Antibiotics)
sulfamethoxazole Allergy Hives Verified 04/22/23 13:52
[From Bactrim]
trimethoprim [From Bactrim] Allergy Hives Verified 04/22/23 13:52
�Medication �Instructions �Recorded �Confirmed �Type
therapeutic multivitamin 1 tab PO DAILY Supplement 04/10/23 09/26/24 History
blood-glucose meter (Contour Next #1 ea 04/13/23 09/26/24 Rx
Gen Meter kit)
insulin glargine 100 unit/mL (3 20 unit (0.2 mL) SC QPM #15 mL 04/13/23 09/26/24 Rx
mL) subcutaneous pen (Lantus
Solostar U-100 Insulin)
atorvastatin 10 mg tablet 10 mg PO DAILY 09/26/24 09/26/24 History
cyclobenzaprine 10 mg tablet 10 mg PO BID 09/26/24 09/26/24 History
insulin aspart U-100 100 unit/mL 15 unit SC TID 09/26/24 09/26/24 History
(3 mL) subcutaneous pen (Novolog
FlexPen U-100 Insulin aspart)
lisinopril 5 mg tablet 5 mg PO HS 09/26/24 09/26/24 History
Review of Systems
-
History Source: Patient
All other systems: Negative unless noted
Skin: Other (erythema right breast)
A 10 point review of systems was completed, and was negative except as per HPI.
Physical Exam
Vital Signs
Temp Pulse Resp BP Pulse Ox
98.1 F 90 18 121/85 98
09/30/24 15:15 09/30/24 15:15 09/30/24 15:15 09/30/24 15:15 09/30/24 15:15
09/29/24 09/30/24 10/01/24
06:59 06:59 06:59
Actual Weight 151.698 kg 150.252 kg
Body Mass Index (BMI) 58.7
Aware alert oriented superobese
RICK EOMI nonicteric
No wheeze or SOB
Right breast with erythema and 2cm superficial fluctuant area
Using aseptic technique area cleansed and anesthetized with 1% lidocaine plain and aspirated of 4cc of purulent material which
was sent for culture sterile dressing applied
Bilateral lower extremities with edema and dressings in place
Lab Results
09/30/24 06:57
09/30/24 06:57
WBC 7.6 10^3/uL (4.8-10.8) 09/30/24 06:57
Hgb 14.1 g/dL (12.0-16.0) 09/30/24 06:57
Hct 42.3 % (37.0-47.0) 09/30/24 06:57
Plt Count 203 10^3/uL (130-400) 09/30/24 06:57
Abs Immat Gran (auto) 0.0 10^3/uL (0-0.05) 09/29/24 07:12
Neutrophils % 56.2 % (42.2-75.2) 09/29/24 07:12
Physical Exam
General: Well Developed and Well Nourished
HEENT: Normocephalic and Anicteric
Respiratory: Clear and Non Labored Respirations
Cardiac: Regular Rhythm
Breast: Other (see above)
Musculoskeletal: No Clubbing and Edema
Skin: Warm and Dry
Neuro: Awake and Oriented
Hematologic/Lymphatic: No Lymphadenopathy
Psych: Calm
Data Reviewed
-
Radiology: Image Personally Visualized and interpreted, Report Reviewed by me, Discussed with Physician and Discussed with Patient
Ultrasound: Image Personally Visualized and interpreted, Report Reviewed by me, Discussed with Physician and Discussed with Patient
Labs: Labs Reviewed by me
Critical Care Time (in minutes): 30
Total Time Spent with Patient (in minutes): 20
Assessment / Plan
-
Superficial skin abscess right breast aspirated and sent for culture. Continue with doxycyline and change gauze dressing daily and PRN. Ok to bathe. Await
final culture results. Patient can follow with me post-discharge.
[2024-09-30 21:21] LABS: Glucose - Point of Care 139 mg/dl (70-99)
[2024-09-30] MEDS: ZESTRIL 5 MG PO (21:31)
[2024-09-30] MEDS: LANTUS 0.1 UNITS SC (21:32)
[2024-09-30 23:00] VITALS: BP 150/81
[2024-10-01] MEDS: HEPARIN 7500 UNITS SC ×2 (00:50→10:08)
[2024-10-01 06:00] VITALS: BMI 59.0
[2024-10-01 07:50] VITALS: BP 125/71
--- NOTE | 2024-10-01 07:50 | W.PN.HOSP.TC ---
Today's Communication/Plan
-
discharge
Assessment / Plan
Assessment / Plan
Physical Exam
General: Morbidly Obese no acute distress appears comfortable at this time
HEENT: NormoCephalic, Anicteric, Moist mucous membranes
Respiratory: Clear; No Wheezes, Rales or Rhonchi
Cardiac: S1/S2 NSR
GI: Soft, Non Tender bowel sounds present
Ext: lower ext swelling b/l erythema suspect due to chronic venous stasis
Neuro: AO x 3 strength lower ext's intact 4/5 b/l no foot drop
Psych: Calm
69F Morbid Obesity Sciatica Chronic Lower Ext Edema here with acute on chronic back pain severe ambulatory dysfunction. PT evaluated and recommended SNF rehab.
#Acute on chronic ambulatory dysfunction secondary to acute on chronic low back pain/Sciatica/morbid obesity/chronic lower leg edema
#Diabetes
#Class III obesity�BMI 56.6
#Chronic peripheral edema
PT/OT appreciated SNF rehab
case management
pain control tizanidine 2 mg TID scheduled titrated up to 4 mg TID, tramadol prn
lidocaine patches and bengay-like cream back
glycemic control
Lumbar MRI appreciated Large Disc Herniation L4-L5 with severe central canal stenosis (case discussed with mgmt consultant neurosurgeon no indication for acute surgical intervention, High BMI and comorbidities place patient at high risk for complications,
conservative mgmt preferred at this time)- outpt follow up recommended
Venous duplex appreciated no clots- ordered compressive ABDIRAHMAN wraps b/l, elevation when at rest
heparin 7500 Q8h dvt ppx morbid obesity BMI>50
PO Lasix 40 mg daily started, cont
#Right breast abscess/lesion/cellulitis
Breast US appreciated complex sebaceous/inclusion cyst
Surgery Eval appreciated Bedside I&D performed 09/29/24
Prelim cultures appreciate no growth
Doxycycline 100 mg BID started cont for 7 days
#Mild Hypercalcemia likely dehydration
resolved with IVF since completed
#mild Vit D def
cont Multivitamin
low dose Vit D supplementation
#Neuropathic Pain
#Burning sensation soles of feet since resolved
patient reports significant swelling due to gabapentin since discontinued
Capsaicin cream feet ordered- discontinued, patient not tolerating, bengay-like cream ordered instead (tolerating w/ back pain) burning sensation however since resolved
dvt ppx heparin 7500 q8h d/t weight
Full Code
Medically stable for discharge SNF rehab with outpt follow up recommendations
Discussed with patient
Total Time Preparing Discharge ___40____ minutes including examination of the patient, summary of the hospital stay, instructions for continuing care to all relevant caregivers; and preparation of discharge records, prescriptions, and referral
forms if necessary.
Anticipated Discharge: Today
Subjective/Interval History
-
Date of Service: October 01, 2024
Objective Data
-
Vital Signs:
Vital Signs
Temp Pulse Resp BP Pulse Ox
97.7 F 72 16 150/81 96
09/30/24 23:00 09/30/24 23:00 09/30/24 23:00 09/30/24 23:00 09/30/24 23:00
I&O
09/30/24 10/01/24 10/02/24
06:59 06:59 06:59
Intake Total 960 / 960 1080 / 1080
Output Total 800 / 800 1100 / 1100
Balance 160 / 160 -20 / -20
[2024-10-01 07:59] LABS: Glucose - Point of Care 131 mg/dl (70-99)
[2024-10-01] MEDS: NOVOLOG FLEXPEN-LOW RESISTANCE SC (10:06)
[2024-10-01] MEDS: NOVOLOG FLEXPEN 8 UNITS SC ×2 (10:07→12:51)
[2024-10-01] MEDS: VITAMIN D3 (cholecalciferol) 10 MCG PO (10:08)
[2024-10-01] MEDS: VIBRAMYCIN 100 MG PO (10:08)
[2024-10-01] MEDS: ZANAFLEX 4 MG PO (10:08)
[2024-10-01] MEDS: LASIX 40 MG PO (10:08)
[2024-10-01] MEDS: THERAGRAN 1 TABLET PO (10:08)
[2024-10-01] MEDS: LIDOCAINE 4% PATCH 2 PATCH TOPICAL (10:09)
[2024-10-01] MEDS: DESENEX/MITRAZOL/ZEASORB 1 APPLIC TOPICAL (10:09)
[2024-10-01] MEDS: BenGay-Like 1 APPLIC TOPICAL (10:10)
--- NOTE | 2024-10-01 10:23 | W.DCSUMMARY ---
Discharge Summary
Discharge Data
Date of Admission: 09/26/24
Date of Discharge: 10/01/24
-
Pending Results: Yes
Additional Pending Results:
official culture results
Discharge Plan
-
Patient Disposition: [facility]
Discharge Diagnosis/Procedures: Acute on chronic ambulatory dysfunction secondary to acute on chronic low back pain/Sciatica/morbid obesity/Chronic Lymphedema Lower extremities
Diabetes
Neuropathy
Lumbar Degenerative Disc Disease
Large Disc Herniation L4-L5 with severe central canal stenosis
Class III obesity�BMI 56.6
Right breast abscess/lesion/cellulitis status post incision drainage
mild Vitamin D deficiency
Condition: Fair
Diet: Diabetic, Carb Controlled
Activity: With assistance, As tolerated and With Walker
Driving Restrictions: Not until seen by your Dr
Bathing Restrictions: None
Blood Work: Obtain Vitamin D level with primary care provider in 1 month of discharge.
Other Services: PT and OT
Activity Restrictions/Additional Instructions:
Please follow up with primary care provider in 1 week of discharge, breast surgeon in 2-4 weeks of discharge, and neurosurgeon in 1 month of discharge.
Bengay-like cream, lidocaine patches, and as needed Tramadol has been prescribed for back pain/sciatica/neuropathy. Patient unable to tolerate Gabapentin (reports significant worsening of leg swelling after start of medications since discontinued-
prior to hospitalization)
Cyclobenzaprine has been replaced with Tizanidine 4 mg three times a day for back pain and muscle spasms/cramps.
Vitamin D supplementation prescribed in addition to home multivitamin for treatment mild Vitamin D deficiency.
Lasix prescribed for lower extremity edema/Lymphedema. Continue ABDIRAHMAN compressive wraps lower extremities as tolerated (ok to remove at bedtime) and elevate when at rest.
Doxycycline prescribed for right breast abscess/cellulitis status post incision drainage. Last day of antibiotics is 10/05/24.
Lantus has been reduced to 10U at bedtime and short acting insulin has been reduced to 8U premeal. This regimen has been sufficient to maintain optimal glycemic control in conjunction with a diabetic carb controlled diet.
Please take medications as prescribed/recommended and follow up with primary care provider and/or other healthcare provider involved in your care for refills and/or further adjustment to your medication regimen as necessary.
Referrals:
Arlene Alexandre MD [Active] - in two to four weeks
Shameka Lenz, [Family Provider] - in one week
Natasha Graves MD [Active] - in one month
Prescriptions:
New
Analgesic [place] (m.salic-menth) 15-10 % Cream
1 applic topical QID Qty: 85 0RF
Rx Instructions:
Apply to Back
furosemide 40 mg Tablet
40 mg PO DAILY Qty: 30 0RF
lidocaine 4 % Adhesive Patch,Medicated
2 patch topical DAILY Qty: 30 0RF
Rx Instructions:
Lower Back
tramadol 50 mg Tablet
50 mg PO BIDPRN PRN (Reason: moderate severe pain) Qty: 10 0RF
doxycycline hyclate 100 mg Capsule
100 mg PO Q12 Qty: 9 0RF
Rx Instructions:
10/05/24 Last day for antibiotics.
tizanidine 2 mg Tablet
4 mg PO TID Qty: 42 0RF
cholecalciferol (vitamin D3) [Vitamin D3] 10 mcg (400 unit) Tablet
10 mcg PO DAILY Qty: 30 0RF
Continued
therapeutic multivitamin Tablet
1 tab PO DAILY
(DME) blood-glucose meter [Contour Next Gen Meter] Kit
See Rx Instructions .Route Qty: 1 0RF
Rx Instructions:
As directed
atorvastatin 10 mg Tablet
10 mg PO DAILY
Rx Instructions:
In the AM
lisinopril 5 mg Tablet
5 mg PO HS
Changed
insulin aspart U-100 [Novolog FlexPen U-100 Insulin] 100 unit/mL (3 mL) insulin pen
8 unit SC TID Qty: 0 0RF
insulin glargine [Lantus Solostar U-100 Insulin] 100 unit/mL (3 mL) insulin pen
10 unit SC QPM Qty: 15 0RF
Discontinued
cyclobenzaprine 10 mg Tablet
10 mg PO BID
Rx Instructions:
Last dose tomorrow
Discharge Orders:
Discharge Patient (As Directed); Ordered 10/01/24
Ordered By: Lin Knox
Discharge Date and Time
Print Language: THAI
--- NOTE | 2024-10-01 10:32 | CM ---
Patient discharge to [facility] today
IMM signed yesterday
Transport set 1400 - notified Shad[facility] liaison
Called daughter
PLAN: [facility]
Report #: [phone]
Fax #: [phone]
transportation forms on chart - 1400
[2024-10-01 12:02] LABS: Glucose - Point of Care 172 mg/dl (70-99)
[2024-10-01] MEDS: NOVOLOG FLEXPEN-LOW RESISTANCE 1 UNITS SC (12:51)
--- NOTE | 2024-10-01 13:01 | PTCARENOTE ---
Patient is refusing to brush teeth and bathing this am. [facility] Patient's belongings were packed by RN. New kain wraps for legs were sent with patient. 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
[2024-10-01] MEDS: FLUAD (65 yr+) 2024-2025 FORMULA 0.5 ML IM (13:08)
[2024-10-01] MEDS: BenGay-Like TOPICAL (13:09)
[2024-10-01 15:28] VITALS: BP 123/68
== END 2024-10-01 16:08 | DRG 552 ==
LOC: 4 WEST ACU 18:22
PROVIDERS: Clinical Nurse Specialist Family Health; Physician Assistant; ADMITTING PHYSICIAN Internal Medicine; CONSULT PHYSICIAN Surgery; EMERGENCY PHYSICIAN Emergency Medicine; FAMILY PHYSICIAN Internal Medicine
PROC: 3E02340 Introduction of Influenza Vaccine into Muscle, Percutaneous Approach (ICD-10-PCS; 2024-10-01)
DX: M48.061 Spinal stenosis, lumbar region without neurogenic claudication (principal); Z68.43 Body mass index [BMI] 50.0-59.9, adult; M54.31 Sciatica, right side; E11.65 Type 2 diabetes mellitus with hyperglycemia; I89.0 Lymphedema, not elsewhere classified; E11.40 Type 2 diabetes mellitus with diabetic neuropathy, unspecified; M51.26 Other intervertebral disc displacement, lumbar region; M51.369 Other intervertebral disc degeneration, lumbar region without mention of lumbar back pain or lower extremity pain; Z79.4 Long term (current) use of insulin; E83.52 Hypercalcemia; I77.810 Thoracic aortic ectasia; Z96.652 Presence of left artificial knee joint; Z88.5 Allergy status to narcotic agent; Z88.2 Allergy status to sulfonamides; E66.813 Obesity, class 3; B35.3 Tinea pedis; B35.1 Tinea unguium; Z79.899 Other long term (current) drug therapy; Z88.1 Allergy status to other antibiotic agents; Z88.3 Allergy status to other anti-infective agents; I87.8 Other specified disorders of veins; N61.1 Abscess of the breast and nipple; E55.9 Vitamin D deficiency, unspecified; Z23 Encounter for immunization
CPT/HCPCS: 72100; 72148; 76642; 80048; 80053; 80061; 82306; 82962; 83036; 83735; 83880; 83970; 84100; 85025; 85027; 87070; 87205; 93970; 97166; 97530; 97535; 99285

== ENCOUNTER 2024-10-20 09:06 | Inpatient (IN) | payer MEDICARE, SELFPAY ==
[2024-10-20] VITALS (39 sets, daily range): BP systolic 42–139; BP diastolic 25–94; BMI 57.3; BMI 58.4
[2024-10-20 08:10] LABS: % Eosinophils 3.4 % (0-6); % Immature Granulocytes 0.7 % (0-0.5); % Lymphocytes 29.3 % (20.5-51.1); % Monocytes 18.8 % (1.7-9.3); % Neutrophils 46.8 % (42.2-75.2); Absolute Basophils 0.1 10^3/uL (0-0.2); Absolute Eosinophils 0.3 10^3/uL (0-0.7); Absolute Immature Granulocytes 0.1 10^3/uL (0-0.05); Absolute Lymphocytes 2.4 10^3/uL (1.2-3.4); Absolute Monocytes 1.5 10^3/uL (0.1-0.6); Absolute Neutrophils 3.8 10^3/uL (1.4-6.5); Hematocrit 45.4 % (37.0-47.0); Hemoglobin 15.1 g/dL (12.0-16.0); Mean Corp Hgb Conc. 33.3 g/dL (33.0-37.0); Mean Corpuscular Volume 84.1 fL (81.0-99.0); Mean Platelet Volume 11.1 fL (7.4-10.4); Nucleated Red Blood Cells % 0 %; Platelet Count 175 10^3/uL (130-400); Red Cell Dist. Width 14.5 % (11.5-14.5); White Blood Cell Count 8.2 10^3/uL (4.8-10.8)
[2024-10-20 08:14] LABS: ALT (SGPT) 44 U/L (0-35); AST (SGOT) 52 U/L (14-36); Albumin 3.6 g/dl (3.5-5.0); Alkaline Phosphatase 106 U/L (38-126); Blood Urea Nitrogen 22 mg/dl (7-17); Calcium 9.4 mg/dl (8.4-10.2); Carbon Dioxide 17 mmol/L (22-30); Chloride 101 mmol/L (98-107); Estimated Creatinine Clearance 73 ml/min; Glucose 306 mg/dl (70-99); Potassium 4.7 mmol/L (3.5-5.1); Sodium 135 mmol/L (135-145); Total Bilirubin 1.8 mg/dl (0.2-1.3); Total Protein 6.8 g/dl (6.3-8.2); eGFR > 60.00
--- NOTE | 2024-10-20 08:15 | ED.GENMED ---
History of Present Illness
General
Chief Complaint: Anxiety
Source: patient
Exam Limitations: none
Time Seen by Provider: 10/20/24 08:01
History of Present Illness
History of Present Illness:
69-year-old female sudden onset of shortness of breath at 630 this morning. No chest pain pleuritic pain fever cough or other complaints. Shortness of breath is significant nature. Recent admission for ambulatory dysfunction chronic edema.
Past History
Past History
ED Past Medical History: HTN, Hypercholesterolemia and Other (Obesity. Ambulatory dysfunction)
ED Past Surgical History: None
Patient has exhibited threatening behavior?: No
Social History
Tobacco: Non-smoker
Alcohol: None
Drug: None
Living: with family
Employment: Employed
Review of Systems
Review of Systems
All Other Systems: Not applicable
Constitutional: Denies fever or chills
Cardiac: Denies chest pain or syncope
Phy Exam
Physical Exam
Physical Exam:
GENERAL: Alert and oriented. Anxious. Hyperventilating.
EYE: Orbits normal.
NECK: Supple, no significant adenopathy.
ENT: Pharynx without erythema
CARDIAC: Tachycardic and regular no murmur
LUNGS: Hyperventilating, clear lung
ABDOMEN: Soft, without focal tenderness or distention. Elevated BMI
NEUROLOGICAL: Alert and oriented , grossly non-focal
SKIN: Warm and dry, no rash or lesion, no discoloration, skin intact.
MUSCULOSKELETAL: Chronic edema
PSYCH: Appropriate but very anxious
Course
Orders/Labs/Results
Orders:
Orders
10/20/24 Breakfast
NPO
Allow oral meds: No
Allow clear liquids: No
10/20/24 07:47
Complete Blood Count/With Diff Urgent
Comprehensive Metabolic Panel Urgent
10/20/24 07:57
CXR Port [CR Chest Portable - 1 View] Urgent
Comment:
Reason For Exam: sob
Reason Study Needs to be Portable: Unable to Transport
10/20/24 08:01
O2 Therapy [RESP] Stat
Titrate/Wean O2 to maintain O2 sat greater than (%): 94
Pulse Ox/cont/shift [RESP] Stat
Quantity: 1
10/20/24 08:02
Electrocardiogram (*1) Stat
Reason for Study: Other
Other Reason for Exam: chest pain
CT Chest PE Study Urgent
Comment:
Reason For Exam: Sudden shortness of breath
Cardiac Monitoring- Treatment ONCE
EKG- Treatment ONCE
10/20/24 08:04
NT-proBNP Urgent
Troponin I Urgent
10/20/24 08:28
Heparin 10,000 units IV NOW STA
Nursing to Place Non Medication Order As Directed
Physician Order: PTT 6 hours after initial start of Heparin infusion
Above order entered?: Yes
10/20/24 08:30
Heparin 53252 Units/250 ml 25,000 units in 250 ml IV PER PROTOCOL
Weight to be used for heparin protocol in kilograms (kg):: 142
Protocol:: DVT/PE
PTT Goal Range to be used:: PTT 73 to 111 seconds
Order type:: Initial
INITIAL Infusion Dose (UNITS/KG/hr) & then follow protocol:: 18 units/kg/hr
Infusion Dose in UNITS/hr & then follow protocol (UNITS/hr):: 2,000
INFUSION RATE in mL/hr & then follow protocol (mL/hr):: 20
For DVT/PE algorithm, re-bolus for low PTT?: Yes
PTT less than or equal to 64 seconds:: Re-bolus 80 units/kg (max 10,000units). Increase by 500 units/hr
(+ 5mL/hr)
PTT 64.1 to 72.9 seconds:: Re-bolus 40 units/kg (max 5,000 units). Increase by 300 units/hr
(+ 3mL/hr)
PTT 73 to 111 seconds:: Target Range. No change in rate.
PTT 111.1 to 130.9 seconds:: Decrease rate by 300 units/hr (- 3 mL/hr)
PTT 131 to 199.9 seconds:: HOLD for 1 hr. Then decrease by 400 units/hr (- 4mL/hr)
PTT greater than or equal to 200 seconds:: HOLD for 2 hrs & Notify Provider. Then decrease by 500 units/hr
(- 5mL/hr)
Lab follow-up:: Each change, PTT q6h until 2 consecutive are therapeutic. Then
PTT daily.
10/20/24 08:34
PTT Urgent
Comment: Obtain baseline before beginning heparin infusion if not already collected
Heparin 10,000 units IV PRN PRN
10/20/24 08:35
Heparin 5,000 units IV PRN PRN
10/20/24 08:54
Admit/Transfer Patient As Directed
Co-Sign Provider:
Level of Care: Inpatient admission
Assign to:: ICU
Physician / Group: Dr Clark
Diagnosis: PE
Reason for Hospitalization: pte p/w PE.
Expected length of stay greater than two midnights?: Yes
ELOS- Estimated Length of Stay in days: 2
I certify the patient meets the requirements for IP care: Yes
Code Status As Directed
Resuscitation Status: Full Code
PRN Pain Medication Management As Directed
May give lesser potent ordered pain med per pt: Yes
preference::
Protocol:: Medication orders for pain may be administered in a
manner that supports deferring to patient preference
when the pt is:
- Requesting an ordered lesser potent pain medication.
Least to most potent pain medications are defined
as: acetaminophen < NSAID < tramadol < opioids
(morphine, oxycodone, hydromorphone).
- Requesting a lesser dose of the same medication IF
ORDERED.
- Requesting a less intrusive route of administration
if both routes are prescribed by the provider (PO <
IV).
10/20/24 08:56
Consult Field Operations Coordinator [Field Operations Coordinator Consult] Stat
Consulting Provider: Goyo Raines
Was physician already notified: Yes
Reason for consult: PE with hemodynamic unstability
Acetaminophen 1000MG/100Ml [Ofirmev] 1,000 mg in 100 ml IV ONCE
Acetaminophen IV Indication:: No LA & No Enteral Access
10/20/24 08:58
COVID-19 Antigen Urgent
Source: Nasal Swab
Influenza A+B Rapid Molecular Urgent
LIDA Source: Nasal Swab
Specimen Description:
10/20/24 09:38
Bisacodyl [Dulcolax] 10 mg RECTAL [id number] PRN
Docusate W/Senna [Senokot-S] 1 tablet PO BIDPRN PRN
Lactated Ringers [Lr] 1,000 ml IV 100 mls/hr
Morphine Sulfate 2 mg IV Q4HPRN PRN
Polyethylene Glycol Powder [Miralax] 17 grams PO DAILYPRN PRN
10/20/24 09:38
Activity As Directed
Activity Level: Bedrest
Vital Signs As Directed
Frequency: Per unit guidelines
10/20/24 14:45
PTT Urgent
10/21/24 06:00
Basic Metabolic Panel IN AM
Complete Blood Count/With Diff IN AM
Abnormal Lab Results
10/20/24 10/20/24
07:47 08:04
MPV 11.1 H fL
(7.4-10.4)
Abs Immat Gran (auto) 0.1 H 10^3/uL
(0-0.05)
Absolute Monos (auto) 1.5 H 10^3/uL
(0.1-0.6)
Immature Gran % 0.7 H %
(0-0.5)
Monocytes % 18.8 H %
(1.7-9.3)
Carbon Dioxide 17 L mmol/L
(22-30)
BUN 22 H mg/dl
(7-17)
Glucose 306 H mg/dl
(70-99)
Total Bilirubin 1.8 H mg/dl
(0.2-1.3)
AST 52 H U/L
(14-36)
ALT 44 H U/L
(0-35)
Troponin I 0.069 H* ng/ml
10/20/24 07:47
10/20/24 07:47
Vital Signs
Initial and Last Documented VS:
Initial Vital Signs
Temp Pulse Resp
96.9 F L 130 26
10/20/24 07:31 10/20/24 07:31 10/20/24 07:31
Last Documented Vital Signs
Temp Pulse Resp BP Pulse Ox
96.9 F L 108 24 93/81 95
10/20/24 07:31 10/20/24 09:46 10/20/24 09:46 10/20/24 09:46 10/20/24 09:46
MDM/Problems Addressed
Differential Diagnosis Includes:
Relatively sudden shortness of breath. Clinically lungs are clear. Not in heart failure. Chest x-ray negative. No pneumothorax. Concern for PE. Sent over immediately for CT scan. Recent electrolytes were normal.
*Pulse Oximetry
Patient hypoxic: yes
*EKG
Interpreted by ED Provider?: Yes
Interpretation: abnormal
Comparison EKG: changes noted
Heart Rate: 125
Rate: tachycardiac
Rhythm: sinus
[place]: left axis deviation
QRS Pattern: right bundle branch block (imnc)
Ischemia: other (S1q3 t3)
*Hanger Off Interpretation
Rate: tachycardiac
Interpretation: abnormal
Heart Rate: 130
Rhythm: sinus
*Critical Care Note
Total Time (30-74mins, 75-104mins- exclusive of procedures): 75
Update Note
Update Note:
0-830.... Patient with significant bilateral pulmonary emboli's. RV strain. Heparin ordered. PERT alert called. Hospitalist contacted.
0850... Patient hypotensive tachycardic hypoxic. IR reviewed and feel no intervention would be appropriate. Question systemic tPA.
0910.... Patient's blood pressure in the 70s. Wide-open fluids. Discussed again with pulmonary. IR not an option at this time. Feel systemic thrombolytics makes sense at this time. I will also contact the family. Daughter updated on her
critical nature
0915... Patient and daughter both discussed the risk benefit of thrombolytics. Given her persistent tachycardia, severe hypoxia, hypotension at this time feel thrombolytics are warranted. Pulmonary agrees.
0930... Continuous monitoring. Prior to going to the ICU. Patient's blood pressure dropped down to 40s. However remained alert warm and dry and noncyanotic. Second liter wide-open fluids was opened up. Levophed ordered. Thrombolytics already
being given. Blood pressure up into the 80s and sent to the ICU at that time.
ED Attending Note
-
Portions of this chart may have been created with voice recognition software.� Occasional wrong word or��sound alike� substitutions may have occurred due to the inherent limitations of voice recognition software.
Discharge Plan
Departure
Patient Disposition: Admit
Date of Disposition: 10/20/24
Time of Disposition: 08:30
Presentation/result/management discussed w/ accepting MD/DO: Pulmonary/IR
Discharge Problem:
Massive pulmonary emboli
Interventions
Interventions:
*Risk Screen - Suicide Last Done: 10/20/24 07:41
*General Assessment Last Done: 10/20/24 07:39
*Neglect/Abuse Screening Last Done: 10/20/24 07:41
ED- Fall Risk Assessment Last Done: 10/20/24 09:31
*ED COVID-19 Vaccine History Last Done: 10/20/24 07:41
*Nursing Disposition Last Done: 10/20/24 09:31
ED-Psychological Assessment Last Done: 10/20/24 07:42
[2024-10-20] MEDS: HEPARIN 10000 UNITS IV (08:37)
[2024-10-20] MEDS: HEPARIN 25000 UNITS/250 ML IV (08:41)
[2024-10-20 08:54] LABS: NT-proBNP 332 pg/ml; Troponin I 0.069 ng/ml
[2024-10-20 08:55] LABS: APTT 28.2 Sec (23.4-35.0)
--- NOTE | 2024-10-20 08:58 | HPS.HSE ---
Family Physician
-
Family Physician: Jean Rothman
Chief Complaint
-
sob
History of Present Illness
Patient is 69 years old female with history of morbid obesity, diabetes mellitus, hypertension, hyperlipidemia, came into the hospital with shortness of breath and hypoxia. Patient states that she has been short of breath since 6:30 AM this morning
and has been progressively getting worse. She also has lower extremity edema and pain in her legs. She denies fevers chills, nausea vomiting or diarrhea. She denies abdominal pain. In the ER PERT alert called, patient was noted to be hypotensive
with blood pressure 42/34, tachycardic, tachypneic, significantly hypoxic. CT scan of the chest showed large volume bilateral pulmonary embolism and right heart strain. She was referred to hospitalist service for further evaluation
Medical History
Past Medical History
Past Medical History: Reports Other
Additional Past Medical History:
Hypertension
Hyperlipidemia
Diabetes mellitus type 2
Morbid obesity
Chronic ambulatory dysfunction, mostly wheelchair-bound
Past Surgical History: Reports Other
Additional Past Surgical History:
Steroid injection lumbar February 10, 2023, 08/11/2024, 09/01/[address] Vaughan
Left knee replacement October 2021 Dr. jeison Liu [place] office
Social History
Tobacco: Non-smoker
Alcohol: None
Drug: None
Personal: Single
Living: [facility]
Employment: Retired (2021 )
Family History
Family History: Not pertinent
Allergies / Home Medications
Allergies reflects when Allergies were last updated in [facility].
Home Medications with original date entered in [facility]
Allergy/Medication List:
Allergies
Allergy/AdvReac Type Severity Reaction Status Date / Time
bacitracin Allergy Unknown Verified 04/22/23 13:52
[From Neosporin
([id number])]
carisoprodol [From Soma] Allergy Hives Verified 04/22/23 13:52
codeine Allergy Hives Verified 04/22/23 13:53
neomycin Allergy Unknown Verified 04/22/23 13:52
[From Neosporin
([id number])]
polymyxin B Allergy Unknown Verified 04/22/23 13:52
[From Neosporin
([id number])]
Sulfa (Sulfonamide Allergy Hives Verified 04/22/23 13:52
Antibiotics)
sulfamethoxazole Allergy Hives Verified 04/22/23 13:52
[From Bactrim]
trimethoprim [From Bactrim] Allergy Hives Verified 04/22/23 13:52
gabapentin AdvReac Intermediate Leg Verified 10/01/24 10:14
swelling
Home Medications
therapeutic multivitamin 1 tab PO DAILY Supplement 04/10/23
atorvastatin 10 mg tablet 10 mg PO DAILY 09/26/24
lisinopril 5 mg tablet 5 mg PO HS 09/26/24
cholecalciferol (vitamin D3) 10 mcg (400 unit) tablet (Vitamin D3) 10 mcg PO DAILY #30 tabs 10/01/24
furosemide 40 mg tablet 40 mg PO DAILY #30 tabs 10/01/24
insulin aspart U-100 100 unit/mL (3 mL) subcutaneous pen (Novolog FlexPen U-100 Insulin aspart) 8 unit (0.08 mL) SC TID #0 mL 10/01/24
lidocaine 4 % topical patch 2 patch topical DAILY #30 ea 10/01/24
tizanidine 2 mg tablet 4 mg (2 x 2 mg) PO TID #42 tabs 10/01/24
tramadol 50 mg tablet 50 mg PO BIDPRN PRN moderate severe pain #10 tabs 10/01/24
acetaminophen 325 mg tablet (Tylenol) 650 mg PO Q4HPRN PRN mild pain 10/20/24
bisacodyl 10 mg rectal suppository (Dulcolax (bisacodyl)) 10 mg OK DAILYPRN PRN if no bm aftr mom 10/20/24
duloxetine 30 mg capsule,delayed release (Cymbalta) 30 mg PO DAILY 10/20/24
insulin glargine 100 unit/mL (3 mL) subcutaneous pen (Lantus Solostar U-100 Insulin) 10 unit SC HS 10/20/24
magnesium hydroxide 400 mg/5 mL oral suspension (Milk of Magnesia) 2,400 mg PO DAILYPRN PRN if no bm by 3rd day 10/20/24
methyl salicylate 15 %-menthol 10 % topical cream (Analgesic Surveyor (m.salic-menthol)) 1 applic topical QID back 10/20/24
sodium phosphates 19 gram-7 gram/118 mL enema (Fleet Enema) 118 ml OK DAILYPRN PRN if no bm aftr dulcolax 10/20/24
Review of Systems
-
A 12 point ROS was completed and negative except as noted: Yes
Physical Exam
Vital Signs
Vital Signs
Temp Pulse Resp
96.9 F L 130 26
10/20/24 07:31 10/20/24 07:31 10/20/24 07:31
Physical exam:
General: Acutely ill
HEENT: Normocephalic, Atraumatic and Moist Mucous Membranes
Respiratory: Decreased breath sounds bilaterally; Negative Wheezes, Rales or Rhonchi
Cardiac: Regular Rhythm, tachycardic, and S1/S2
GI: Soft, Nontender and Nondistended
Musculoskeletal: No Clubbing, No Cyanosis. Bilateral lower extremity edema. Tenderness in both lower extremities.
Neuro: Awake, Alert and Oriented, no gross neurological deficit
Psych: Anxious
Physical Exam
General: Other
Laboratory Results
-
10/20/24 07:47
10/20/24 07:47
Laboratory Results
Total Bilirubin 1.8 mg/dl (0.2-1.3) H 10/20/24 07:47
AST 52 U/L (14-36) H 10/20/24 07:47
ALT 44 U/L (0-35) H 10/20/24 07:47
Alkaline Phosphatase 106 U/L (38-126) 10/20/24 07:47
Troponin I 0.069 ng/ml H* 10/20/24 08:04
Impression/Plan
-
IMPRESSION:
Patient is 69 years old female with multiple comorbidities came into the hospital with acute hypoxic respiratory failure due to massive bilateral PE with hemodynamic instability. Patient is critically ill and at very high risk of clinical
deterioration with increased morbidity and mortality therefore will need to be treated in the hospital accordingly.
PLAN:
Massive PE:
Seen CT scan of the chest
IV heparin drip
Discussed with IR and not amenable for catheter directed thrombolytics due to comorbidities
ER discussed risk and benefits with patient and family and proceeded with systemic thrombolysis with tPA. Pulm and I were made aware of the situation.
Will resume IV heparin drip afterwards
Ultrasound bilateral lower extremity and echocardiogram
Critical care consulted
Keep n.p.o. until patient stabilizes and IV fluid--> once more stable we will start diet and stop IV fluids.
Discussed with the ER physician at length
Cardiogenic shock:
Due to PE
Bolus IV fluid
Started IV pressors with Levophed
Monitor hemodynamic closely
Acute hypoxic respiratory failure:
Due to PE
Anticoagulation
Oxygen supplementation
Elevated troponin:
Due to PE from right ventricular strain
Diabetes mellitus type 2:
Insulin sliding scale
Hypertension:
Hold on all antihypertensives
CODE STATUS:
Full code
Total Critical Care Time_65____ minutes. I was immediately available to the patient and staff. I personally examined, reviewed labs, diagnostic images/reports, interpretations, treatment plans, discussed patient care with other providers and
family or caregivers (if patient is unable to make decisions), entered orders as appropriate and documented the medical record.
[2024-10-20] MEDS: OFIRMEV 100 IV (09:05)
[2024-10-20] MEDS: ACTIVASE 50 MG IV ×2 (09:22→09:44)
[2024-10-20 09:27] LABS: COVID-19 Antigen Negative (Negative)
[2024-10-20] MEDS: LEVOPHED 250 IV (09:29)
[2024-10-20] MEDS: LR 1000 IV (09:59)
--- NOTE | 2024-10-20 10:47 | PTCARENOTE ---
adm to ICU 3367 via ED stretcher. very anxious. settled in room, complete CHG bath, intolerant of activity and intolerant in laying flat. tolerating 4l nc with sats okay. lungs as noted. levophed infusing, titrated, see intervention. alteplase
bolus given, see MAR for time, tolerated. family bedside. presently HOB up, visiting. anxiety relieved at times. call farias in reach. frequent mouth care. multiple c/o, aches, both legs, mid chest heaviness (unchanged). support given.
purewick in place.
[2024-10-20] MEDS: MORPHINE SULFATE 2 MG IV (11:38)
[2024-10-20 12:33] LABS: APTT > 200 Sec (23.4-35.0)
[2024-10-20 12:34] LABS: Glucose - Point of Care 221 mg/dl (70-99)
[2024-10-20 13:57] LABS: APTT > 200 Sec (23.4-35.0)
--- NOTE | 2024-10-20 14:01 | PTCARENOTE ---
noted tiny nosebleed, L nare. no clot, no active bleeding. humidity remains in oxygen, flow to 2l, instructed to minimize blowing and to be gentle. Plan reviewed. lungs noted with wheezing. Dr. Raines in room, family remains bedside.
--- NOTE | 2024-10-20 14:21 | CON.INTV ---
Consultation
Consultation Request
Date/Time Consultation Requested: 10/20/2024-9 AM
Date/Time Consultation Performed: 10/20/2024-9:30 AM
Requesting Provider: Dr. Thorpe
Performing Provider: Dr. Raines
Reason for Consultation: Submassive pulmonary embolism
Medical History
-
Chief Complaint: Shortness of breath
History of Present Illness:
69-year-old morbidly obese non-smoking female with a history of hypertension, hyperlipidemia and ambulatory dysfunction presented from rehab with increasing shortness of breath and found to be tachycardic, hypotensive with submassive pulmonary
emboli with evidence for right ventricular strain-emergent thrombolytics provided-enginehouse brakeman consulted for massive pulmonary embolism/hypotension/post lytics/critical care management 10/20/2024. Patient had significant shortness of breath,
lightheadedness, no chest pain, chest congestion, productive cough, abdominal pain, nausea but admitted to increased lower extremity swelling since she has been at rehab.
Past Medical History
Past Medical History: None (Morbid obesity. Chronic lower extremity edema. Sciatica. Ambulatory dysfunction. Right breast abscess/lesion/cellulitis/drainage. L4-5 disc herniation. Neuropathy. Diabetes. Fatty liver. Steroid injections lumbar
area. Left knee replacement 2021.)
Social History
Tobacco: Non-smoker (Secondhand smoke exposure)
Alcohol: None
Drug: None
Personal: Single
Living: With Family and Other (Came from rehab)
Occupational Exposures: No known asbestos exposure
Environmental Exposures: No known tuberculosis exposure
Family History
Family History: Reviewed & Not Pertinent
Allergies / Home Medications
Allergies
Allergy/AdvReac Type Severity Reaction Status Date / Time
bacitracin Allergy Unknown Verified 04/22/23 13:52
[From Neosporin
([id number])]
carisoprodol [From Soma] Allergy Hives Verified 04/22/23 13:52
codeine Allergy Hives Verified 04/22/23 13:53
neomycin Allergy Unknown Verified 04/22/23 13:52
[From Neosporin
([id number])]
polymyxin B Allergy Unknown Verified 04/22/23 13:52
[From Neosporin
([id number])]
Sulfa (Sulfonamide Allergy Hives Verified 04/22/23 13:52
Antibiotics)
sulfamethoxazole Allergy Hives Verified 04/22/23 13:52
[From Bactrim]
trimethoprim [From Bactrim] Allergy Hives Verified 04/22/23 13:52
gabapentin AdvReac Intermediate Leg Verified 10/01/24 10:14
swelling
Home Medications
�Medication �Instructions �Recorded �Confirmed �Last Taken �Type
therapeutic multivitamin 1 tab PO DAILY Supplement 04/10/23 10/20/24 10/19/24 History
atorvastatin 10 mg tablet 10 mg PO DAILY 09/26/24 10/20/24 10/19/24 History
lisinopril 5 mg tablet 5 mg PO HS 09/26/24 10/20/24 10/19/24 History
cholecalciferol (vitamin D3) 10 10 mcg PO DAILY #30 tabs 10/01/24 10/20/24 10/19/24 Rx
mcg (400 unit) tablet (Vitamin D3)
furosemide 40 mg tablet 40 mg PO DAILY #30 tabs 10/01/24 10/20/24 10/19/24 Rx
insulin aspart U-100 100 unit/mL 8 unit (0.08 mL) SC TID #0 mL 10/01/24 10/20/24 10/19/24 Rx
(3 mL) subcutaneous pen (Novolog
FlexPen U-100 Insulin aspart)
lidocaine 4 % topical patch 2 patch topical DAILY #30 ea 10/01/24 10/20/24 10/19/24 Rx
tizanidine 2 mg tablet 4 mg (2 x 2 mg) PO TID #42 tabs 10/01/24 10/20/24 10/19/24 Rx
tramadol 50 mg tablet 50 mg PO BIDPRN PRN moderate 10/01/24 10/20/24 10/17/24 Rx
severe pain #10 tabs
acetaminophen 325 mg tablet 650 mg PO Q4HPRN PRN mild pain 10/20/24 10/20/24 10/20/24 History
(Tylenol)
bisacodyl 10 mg rectal suppository 10 mg MS DAILYPRN PRN if no bm 10/20/24 10/20/24 Unknown History
(Dulcolax (bisacodyl)) aftr mom
duloxetine 30 mg capsule,delayed 30 mg PO DAILY 10/20/24 10/20/24 10/19/24 History
release (Cymbalta)
insulin glargine 100 unit/mL (3 10 unit SC HS 10/20/24 10/20/24 10/19/24 History
mL) subcutaneous pen (Lantus
Solostar U-100 Insulin)
magnesium hydroxide 400 mg/5 mL 2,400 mg PO DAILYPRN PRN if no bm 10/20/24 10/20/24 Unknown History
oral suspension (Milk of Magnesia) by 3rd day
methyl salicylate 15 %-menthol 10 1 applic topical QID back 10/20/24 10/20/24 10/19/24 History
% topical cream (Analgesic Manvel
(m.salic-menthol))
sodium phosphates 19 gram-7 118 ml MS DAILYPRN PRN if no bm 10/20/24 10/20/24 Unknown History
gram/118 mL enema (Fleet Enema) aftr dulcolax
Review of Systems
-
Unable to Obtain full review of systems at this time due to: Other (Per HPI)
Vitals / Labs / Diagnostic Testing
Vital Signs
Temp Pulse Resp BP Pulse Ox
97.4 F 83 17 117/86 98
10/20/24 12:10 10/20/24 13:45 10/20/24 13:45 10/20/24 13:31 10/20/24 14:00
Lab Data
10/20/24 07:47
10/20/24 07:47
Laboratory Results
10/20/24 10/20/24 10/20/24
08:34 11:28 13:21
APTT 28.2 > 200 H* > 200 H*
Microbiology
10/20/24 08:58 Nasal Swab Influenza Types A & B (ALEXYS) - Final
Negative for Influenza A & B, NAAT
Negative results must be combined with clinical observations
and patient history.
Nucleic Acid Amplification test (NAAT)performed on the
[employer] platform.
Diagnostic Testing:
Physical Exam
-
Exam:
Morbidly obese female in no apparent distress
HEENT-atraumatic, normocephalic, thick neck
Neck-supple, no JVD, no bruit
Heart-regular rate and rhythm-no increased P2 or RV heave
Chest-clear to auscultation, no wheezes, crackles
Abdomen-soft, nontender, nondistended, no hepatosplenomegaly
Extremities-no cyanosis, clubbing, bilateral 1+ edema s
Integument-intact, no rashes, lesions or ecchymosis
Neurology-alert and oriented, nonfocal motor and sensory exam
Assessment
-
69-year-old morbidly obese non-smoking female with a history of hypertension, hyperlipidemia and ambulatory dysfunction presented from rehab with increasing shortness of breath and found to be tachycardic, hypotensive with submassive pulmonary
emboli with evidence for right ventricular strain-emergent thrombolytics provided-enginehouse brakeman consulted for massive pulmonary embolism/hypotension/post lytics/critical care management 10/20/2024.
Submassive pulmonary embolism with right ventricular strain
Persistent tachycardia, hypotension despite fluids requiring pressors-thrombolytics provided
Provoked-ambulatory dysfunction and rehab
[id number] V high risk
Lower extremity DVT
Ambulatory dysfunction
Hyperglycemia
Elevated LFTs
Elevated troponin
Conditions present prior to admission:
Recent hospitalization-acute on top of chronic ambulatory dysfunction, right breast abscess-10/01/2024-subsequently went to rehab
Morbid obesity-class III-BMI 56
Chronic lower extremity edema.
Sciatica.
Ambulatory dysfunction.
Right breast abscess/lesion/cellulitis/drainage.
L4-5 disc herniation.
Neuropathy.
Diabetes.
Fatty liver.
Steroid injections lumbar area.
Left knee replacement 2021.
Plan
Patient will be admitted to medical intensive care unit for close observation-critically ill on pressors
Supplemental oxygen as needed
Intubated mechanically ventilated if necessary
Aspiration precautions
Incentive spirometry
CT chest personally reviewed-see below
Check echocardiogram
Check lower extremity ultrasound
May need eventual hypercoagulable workup-no this event appears to have been provoked-sedentary with ambulatory dysfunction
Full PESI summarized above
Heparin drip continues after thrombolytics once PTT appropriate
Benefits and risks of thrombolytics therapy were reviewed with patient
Benefits outweigh the risks in this patient unresponsive to wide-open IV fluids and continues to be hypotensive, pressor dependent, hypoxemic and tachycardic-increased risk of bleed has been reviewed-once again benefits outweigh the risks
Bedrest �24-48 hours
Monitor blood sugar
Insulin supplementation as needed
Follow LFTs
Trend troponin
Echocardiogram pending
Consider cardiology evaluation if troponin significantly elevated
DVT prophylaxis-on full anticoagulation
Early nutrition
Early mobilization
Outpatient pulmonary follow-up
Reviewed with daughter on multidisciplinary rounds 10/20/2024
Outpatient sleep disordered breathing workup-significant risk based on history-told patient and daughter needs workup-they are in agreement
Critical care statement: A total of 65 minutes of critical care time was provided for this patient today. This includes management of unstable vital signs, evaluation for thrombolytic therapy, management of large pulmonary embolism, evaluation of
the patient at bedside, pressor management, massive pulmonary embolism thrombolytic and anticoagulation management, reviewing the patient's pertinent medical records including radiographs, microbiology, laboratory evaluations, and discussion with
primary team, consultants, pharmacy, and critical care nursing.
Diagnostic data:
Chest x-ray 10/20/2024-mild bibasilar atelectasis, mild cardiomegaly
CT chest 04/10/2023-cholelithiasis, no pulmonary abnormalities with exception of mild subpleural scarring
CT chest 10/20/2024-large volume bilateral pulmonary emboli distal right main pulmonary artery, lobar right pulmonary arteries subsegmental pulmonary arteries in the right lower lobe right middle lobe and right upper lobe, pulm emboli also within
distal left main as well as left upper lobe and left lower lobe, positive RV strain RV: LV ratio 3.3
Lower extremity ultrasound 09/27/2024-no lower extremity evidence for DVT
Lower extremity ultrasound 10/20/2024-new occlusive DVT in the right popliteal vein
Data Reviewed
-
EKG: Report reviewed by me
Radiology: Image personally visualized and interpreted and Report reviewed by me
CT Scan: Image personally visualized and interpreted and Report reviewed by me
Ultrasound: Report reviewed by me
Labs: Labs reviewed by me
Old Records: Reviewed
Critical Care Time (in minutes): 65
--- NOTE | 2024-10-20 14:30 | PTCARENOTE ---
echo in progress.
[2024-10-20] MEDS: CYMBALTA DELAYED RELEASE 30 MG PO (15:05)
[2024-10-20] MEDS: LIPITOR 10 MG PO (15:05)
[2024-10-20 15:21] LABS: APTT 103.4 Sec (23.4-35.0)
[2024-10-20 17:07] LABS: Glucose - Point of Care 141 mg/dl (70-99)
[2024-10-20] MEDS: NOVOLOG FLEXPEN-MODERATE RESISTANCE SC (17:07)
--- NOTE | 2024-10-20 17:37 | PTCARENOTE ---
eating dinner, feeling much better, abd soft, denies urge to void at present, purewick maintained. glucose improved, no coverage needed. Heparin gtt restarted per orders, PTT <70 (60) at previous rate, 2000 units/hr. see flowsheet for exact
times. VS noted. post alteplase orders continuing, up to hourly checks. IV site bloody RAC, redressed.
[2024-10-20] MEDS: TYLENOL 650 MG PO (18:17)
--- NOTE | 2024-10-20 20:00 | PTCARENOTE ---
Received patient at 1900. Pt. currently in bed. Awake, alert, and oriented. C/o pain, PRN medication given, see MAR. Afebrile. Heart rhythm sinus. Blood pressure normotensive. Currently on room air. Lungs sound diminished. PO diet ordered.
Incontinent of urine, PureWick device in place. Skin as documented. Discussed plan of care with patient. Vital signs stable at this time.
[2024-10-20] MEDS: DESENEX/MITRAZOL/ZEASORB 1 APPLIC TOPICAL (22:00)
[2024-10-20] MEDS: LANTUS 0.1 UNITS SC (22:01)
[2024-10-20 22:11] LABS: Glucose - Point of Care 134 mg/dl (70-99)
[2024-10-20 23:18] LABS: APTT > 200 Sec (23.4-35.0)
[2024-10-21] VITALS (16 sets, daily range): BP systolic 104–152; BP diastolic 61–116; BMI 59.3
--- NOTE | 2024-10-21 | PTCARENOTE ---
Pt. assessment unchanged. Currently sleeping. Heparin gtt on hold. Will restart at 1:15am. Vital signs stable at this time.
--- NOTE | 2024-10-21 04:00 | PTCARENOTE ---
Pt. assessment remains unchanged. Heparin gtt infusing. Pt. appears comfortable. No complaints of pain/discomfort. Vital signs stable at this time.
[2024-10-21] MEDS: TYLENOL 650 MG PO ×3 (06:03→14:46)
[2024-10-21] MEDS: HEPARIN 25000 UNITS/250 ML IV (06:04)
[2024-10-21 06:25] LABS: % Basophils 0.5 % (0-2); % Eosinophils 2.6 % (0-6); % Immature Granulocytes 0.6 % (0-0.5); % Lymphocytes 26.2 % (20.5-51.1); % Monocytes 16.4 % (1.7-9.3); % Neutrophils 53.7 % (42.2-75.2); Absolute Eosinophils 0.2 10^3/uL (0-0.7); Absolute Immature Granulocytes 0.1 10^3/uL (0-0.05); Absolute Monocytes 1.3 10^3/uL (0.1-0.6); Absolute Neutrophils 4.2 10^3/uL (1.4-6.5); Hematocrit 38.2 % (37.0-47.0); Hemoglobin 13.1 g/dL (12.0-16.0); Mean Corp Hgb Conc. 34.3 g/dL (33.0-37.0); Mean Corpuscular Hgb 28.3 pg (27.0-31.0); Mean Corpuscular Volume 82.5 fL (81.0-99.0); Mean Platelet Volume 11.2 fL (7.4-10.4); Nucleated Red Blood Cells % 0 %; Platelet Count 172 10^3/uL (130-400); Red Blood Cell Count 4.63 10^6/uL (4.20-5.40); Red Cell Dist. Width 14.4 % (11.5-14.5); White Blood Cell Count 7.8 10^3/uL (4.8-10.8)
[2024-10-21 06:56] LABS: APTT > 200.0 Sec (23.4-35.0)
--- NOTE | 2024-10-21 07:19 | W.PN.INTV ---
Today's Communication / Plan
Recommendations
Heparin drip
Wean oxygen
Slowly increase activity
Norepinephrine weaned
Stable for transfer to telemetry-pulmonary will follow briefly
Assessment
-
69-year-old morbidly obese non-smoking female with a history of hypertension, hyperlipidemia and ambulatory dysfunction presented from rehab with increasing shortness of breath and found to be tachycardic, hypotensive with submassive pulmonary
emboli with evidence for right ventricular strain-emergent thrombolytics provided-black and white printer operator consulted for massive pulmonary embolism/hypotension/post lytics/critical care management 10/20/2024.
Submassive pulmonary embolism with right ventricular strain
Persistent tachycardia, hypotension despite fluids requiring pressors-thrombolytics provided
Provoked-ambulatory dysfunction and rehab
[id number] V high risk
Lower extremity DVT
Ambulatory dysfunction
Hyperglycemia
Elevated LFTs
Elevated troponin
Conditions present prior to admission:
Recent hospitalization-acute on top of chronic ambulatory dysfunction, right breast abscess-10/01/2024-subsequently went to rehab
Morbid obesity-class III-BMI 56
Chronic lower extremity edema.
Sciatica.
Ambulatory dysfunction.
Right breast abscess/lesion/cellulitis/drainage.
L4-5 disc herniation.
Neuropathy.
Diabetes.
Fatty liver.
Steroid injections lumbar area.
Left knee replacement 2021.
Plan
Hemodynamics have improved significantly-less tachycardic, and blood pressure improved
Supplemental oxygen as needed-continue to wean
Aspiration precautions
Incentive spirometry
CT chest personally reviewed-see below
Echocardiogram 10/20/2024-EF 65%, enlarged right ventricle with hypokinesis, no valvular disease, PA systolic estimated 30
Lower extremity ultrasound 10/20/2024-new occlusive DVT right popliteal vein
May need eventual hypercoagulable workup-no this event appears to have been provoked-sedentary with ambulatory dysfunction
Full PESI summarized above
Heparin drip continues after thrombolytics-continue for an additional 24 hours with subsequent consideration towards DOAC-3 to 6 months
Norepinephrine weaned
Benefits and risks of thrombolytics therapy were reviewed with patient
Benefits outweigh the risks in this patient unresponsive to wide-open IV fluids and continues to be hypotensive, pressor dependent, hypoxemic and tachycardic-increased risk of bleed has been reviewed-once again benefits outweigh the risks
Bedrest continues �24
Monitor blood sugar
Insulin supplementation as needed
Follow LFTs
Trend troponin-peaked at 3.6 and now down to 1.8
DVT prophylaxis-on full anticoagulation
Begin nutrition
Early mobilization when safe
Reviewed with daughter on multidisciplinary rounds 10/20/2024
Outpatient pulmonary and sleep disordered breathing workup-significant risk based on history-told patient and daughter needs workup-they are in agreement
If remains hemodynamically stable could be transferred to telemetry-pulmonary will follow briefly
Critical care statement: A total of 38 minutes of critical care time was provided for this patient today. This includes management of unstable vital signs, evaluation for thrombolytic therapy, management of large pulmonary embolism, evaluation of
the patient at bedside, pressor management, massive pulmonary embolism thrombolytic and anticoagulation management, reviewing the patient's pertinent medical records including radiographs, microbiology, laboratory evaluations, and discussion with
primary team, consultants, pharmacy, and critical care nursing.
Diagnostic data:
Chest x-ray 10/20/2024-mild bibasilar atelectasis, mild cardiomegaly
CT chest 04/10/2023-cholelithiasis, no pulmonary abnormalities with exception of mild subpleural scarring
CT chest 10/20/2024-large volume bilateral pulmonary emboli distal right main pulmonary artery, lobar right pulmonary arteries subsegmental pulmonary arteries in the right lower lobe right middle lobe and right upper lobe, pulm emboli also within
distal left main as well as left upper lobe and left lower lobe, positive RV strain RV: LV ratio 3.3
Lower extremity ultrasound 09/27/2024-no lower extremity evidence for DVT
Lower extremity ultrasound 10/20/2024-new occlusive DVT in the right popliteal vein
Subjective Dataa
Subjective Data
Date of Service:
Date of Service: October 21, 2024
Chief Complaint: Process Improvement Engineer Follow Up, Pulmonary Follow Up and VTE Follow Up
Subjective:
Feels much improved, no complaints of shortness of breath, chest pain or abdominal pain
Review of Systems
General: Other (Per HPI)
Objective Data
Data Reviewed
Vital Signs / I&O / Oxygen:
Vital Signs
Temp Pulse Resp BP Pulse Ox
98.4 F 67 17 129/89 95
10/21/24 03:51 10/21/24 06:30 10/21/24 06:30 10/21/24 06:00 10/21/24 06:30
Intake and Output
10/20/24 10/21/24 10/22/24
06:59 06:59 06:59
Intake Total 1340.0 / 1340.0
Output Total 350 / 350
Balance 990.0 / 990.0
SaO2 95
Nasal Cannula flow liters per 4
minute
Physical Exam
General: Respiratory Distress (n) and Comfortable
HEENT: Normocephalic, Anicteric and Moist Mucous Membranes
Cardiovascular: Regular Rhythm
Respiratory: Crackles (n), Rhonchi, Non-Labored Respirations, Accessory Resp Muscle Use (n) and Stridor (n)
GI: Soft, Non Distended and Non Tender
Neurology: Awake, Alert and No Motor Deficits
Skin: Warm, Good Color, Cyanosis (n), Jaundice (n) and Rash (n)
Labs/Micro/Reports
Lab Data
10/21/24 06:15
Laboratory Results
10/20/24 10/20/24 10/20/24
08:34 11:28 13:21
APTT 28.2 > 200 H* > 200 H*
10/20/24 10/20/24 10/20/24
14:42 15:44 22:28
APTT 103.4 H 60.0 H > 200 H*
10/21/24
06:15
APTT > 200.0 H*
Microbiology
10/20/24 08:58 Nasal Swab Influenza Types A & B (ALEXYS) - Final
Negative for Influenza A & B, NAAT
Negative results must be combined with clinical observations
and patient history.
Nucleic Acid Amplification test (NAAT)performed on the
[employer] platform.
[2024-10-21 07:31] LABS: Blood Urea Nitrogen 21 mg/dl (7-17); Calcium 8.9 mg/dl (8.4-10.2); Carbon Dioxide 21 mmol/L (22-30); Chloride 104 mmol/L (98-107); Estimated Creatinine Clearance 106 ml/min; Glucose 124 mg/dl (70-99); Sodium 135 mmol/L (135-145); eGFR > 60.00
[2024-10-21] MEDS: DESENEX/MITRAZOL/ZEASORB 1 APPLIC TOPICAL ×2 (07:55→20:11)
[2024-10-21] MEDS: CYMBALTA DELAYED RELEASE 30 MG PO (07:55)
[2024-10-21] MEDS: LASIX 40 MG PO (07:55)
[2024-10-21] MEDS: NOVOLOG FLEXPEN-MODERATE RESISTANCE SC (07:55)
[2024-10-21] MEDS: LIPITOR 10 MG PO (07:55)
[2024-10-21 08:04] LABS: Glucose - Point of Care 130 mg/dl (70-99)
--- NOTE | 2024-10-21 09:13 | PTCARENOTE ---
Pt received in bed @ 0700. AAOx3. Anxious. Pt reporting B/L lower extremity pain adequately treated by Tylenol. Neuro check assessed to be pt's baseline. SaO2 96% on room air. Sinus rhythm on hall monitor. MAP > 65 without pressors. PTT
resulted > 200. Heparin gtt held for 2 hours and restarted @ 1000 units/hr per order. Trace anasarca. (+) pedal pulses. Round obese belly. (+) appetite. Incontinent large yellow urine.
--- NOTE | 2024-10-21 10:15 | W.PN.HOSP.TC ---
Today's Communication/Plan
-
Continue heparin drip
Assessment / Plan
Assessment / Plan
Physical exam:
General: Acutely ill
HEENT: Normocephalic, Atraumatic and Moist Mucous Membranes
Respiratory: Decreased breath sounds bilaterally; Negative Wheezes, Rales or Rhonchi
Cardiac: Regular Rhythm, tachycardic, and S1/S2
GI: Soft, Nontender and Nondistended
Musculoskeletal: No Clubbing, No Cyanosis. Bilateral lower extremity edema. Tenderness in both lower extremities.
Neuro: Awake, Alert and Oriented, no gross neurological deficit
Psych: Anxious
A/P:
Massive PE and right acute DVT:
Status post tPA
Continue heparin drip
Will start increasing ambulation
Discussed with family at bedside
Out of ICU per critical care
Cardiogenic shock:
Resolved
Due to PE
Status post fluid and pressors now off both of them.
Acute hypoxic respiratory failure:
Resolved
Due to PE
Anticoagulation
Oxygen supplementation
Elevated troponin:
Due to PE from right ventricular strain
Diabetes mellitus type 2:
Insulin sliding scale
Hypertension:
Hold on all antihypertensives and will reevaluate over the next 24 hours
CODE STATUS:
Full code
Total time spent on today's encounter was 52 minutes which included time spent in counseling the patient/family regarding diagnosis and treatment plan as listed above, goals of care, and symptom management. Case was discussed with nursing staff,
specialists, and care coordinators/case management. All labs and imaging personally reviewed by me. Remainder the time spent in detailed review of previous records, lab data, imaging, and other medical provider documentation.
Anticipated Discharge: > 48 hours
Subjective/Interval History
-
Date of Service: October 21, 2024
Patient feels better today. Still having some achiness in her legs. No chest pain or shortness of breath. Hemodynamics have improved over the last 24 hours.
Objective Data
-
Labs:
Laboratory Results
10/20/24 10/21/24 10/21/24
22:28 06:15 15:00
WBC 7.8
Hgb 13.1
Hct 38.2
Plt Count 172
APTT > 200 H* > 200.0 H* Pending
Sodium 135
Potassium 4.0
Chloride 104
Carbon Dioxide 21 L
BUN 21 H
Creatinine 0.7
Glucose 124 H
Calcium 8.9
Vital Signs:
Vital Signs
Temp Pulse Resp BP Pulse Ox
98.4 F 71 18 131/92 96
10/21/24 10:00 10/21/24 07:00 10/21/24 07:00 10/21/24 07:00 10/21/24 08:21
I&O
10/20/24 10/21/24 10/22/24
06:59 06:59 06:59
Intake Total 1340.0 / 1355.0
Output Total 350 / 350
Balance 990.0 / 1005.0
--- NOTE | 2024-10-21 10:45 | PTCARENOTE ---
Pt reassessed. PRN Tylenol administered for pain. Remains sinus rhythm on specialty sales consultant. MAP remains > 65 without pressors. Heparin gtt infusing @ 1000 units/hr. SaO2 97% on room air. 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
I've been cleared.' Negative MRSA swabs x2 within last year. Updated in documentation; Standard precaution.
--- NOTE | 2024-10-21 11:11 | CM ---
Patient seen at bedside with daughter's present. Patient had been at [facility] as a short term care patient and was not happy. Patient daughter did not agree to pay to hold bed. CM spoke with patient and she indicated that she normally lives
with patient daughter Odalis in an apartment one story. Patient states that her PCP is Dr. Handley and that she uses the [facility] in [place]. Patient wants to go to a different SNF and daughters do not want her to return to [facility]. Patient
family aware of patient need to review options for SNF and communicate to CM. CM reviewed list of local SNF options and medicare.gov. CM will continue to follow for discharge planning needs.
Plan; SNF
[2024-10-21 11:50] LABS: Glucose - Point of Care 155 mg/dl (70-99)
[2024-10-21] MEDS: NOVOLOG FLEXPEN-MODERATE RESISTANCE 1 UNITS SC (12:56)
[2024-10-21 15:43] LABS: APTT 80.9 Sec (23.4-35.0)
--- NOTE | 2024-10-21 15:56 | PTCARENOTE ---
Rec'd pt from ICU, oriented to room and unit. Placed on tele running nsr. On RA, sating 97%. Purewick in place, hooked up to suction. Call farias placed within reach, pt instructed to ring, verbalized understanding. will cont to monitor.
[2024-10-21 16:33] LABS: Glucose - Point of Care 257 mg/dl (70-99)
[2024-10-21] MEDS: NOVOLOG FLEXPEN-MODERATE RESISTANCE 5 UNITS SC (16:46)
[2024-10-21 21:22] LABS: Glucose - Point of Care 139 mg/dl (70-99)
[2024-10-21] MEDS: LANTUS 0.1 UNITS SC (21:34)
[2024-10-21 23:10] LABS: APTT 64.4 Sec (23.4-35.0)
[2024-10-21] MEDS: HEPARIN 5000 UNITS IV (23:36)
[2024-10-22] VITALS (8 sets, daily range): BP systolic 122–162; BP diastolic 72–103; PULSE 67; O2SAT 96; BMI 58.1
[2024-10-22] MEDS: ULTRAM 50 MG PO (03:26)
[2024-10-22 05:56] LABS: Hematocrit 39.1 % (37.0-47.0); Hemoglobin 13.1 g/dL (12.0-16.0); Mean Corp Hgb Conc. 33.5 g/dL (33.0-37.0); Mean Corpuscular Hgb 28.1 pg (27.0-31.0); Mean Corpuscular Volume 83.7 fL (81.0-99.0); Mean Platelet Volume 10.7 fL (7.4-10.4); Platelet Count 176 10^3/uL (130-400); Red Blood Cell Count 4.67 10^6/uL (4.20-5.40); Red Cell Dist. Width 14.2 % (11.5-14.5); White Blood Cell Count 6.8 10^3/uL (4.8-10.8)
[2024-10-22 06:28] LABS: APTT > 200 Sec (23.4-35.0)
[2024-10-22 06:50] LABS: Blood Urea Nitrogen 13 mg/dl (7-17); Calcium 8.5 mg/dl (8.4-10.2); Carbon Dioxide 26 mmol/L (22-30); Chloride 106 mmol/L (98-107); Estimated Creatinine Clearance 105 ml/min; Glucose 116 mg/dl (70-99); Potassium 4.2 mmol/L (3.5-5.1); Sodium 138 mmol/L (135-145); eGFR > 60.00
[2024-10-22 07:19] LABS: Glucose - Point of Care 109 mg/dl (70-99)
[2024-10-22] MEDS: NOVOLOG FLEXPEN-MODERATE RESISTANCE SC ×2 (07:23→11:41)
[2024-10-22] MEDS: LASIX 40 MG PO (07:52)
[2024-10-22] MEDS: LIPITOR 10 MG PO (07:52)
[2024-10-22] MEDS: CYMBALTA DELAYED RELEASE 30 MG PO (07:52)
[2024-10-22] MEDS: TYLENOL 650 MG PO ×2 (07:52→21:40)
[2024-10-22] MEDS: DESENEX/MITRAZOL/ZEASORB 1 APPLIC TOPICAL ×2 (07:54→19:46)
--- NOTE | 2024-10-22 08:50 | W.PN.HOSP.TC ---
Addendum entered and electronically signed by Douglas Clark MD 10/22/24 11:31:
Patient tells me she had some chest pain after physical therapy increase mobility. Chest pain resolved. Will obtain a chest x-ray and twelve-lead EKG.
Original Note:
Today's Communication/Plan
-
Anticoagulation. Antihypertensive adjustments.
Assessment / Plan
Assessment / Plan
Physical exam:
General: Acutely ill but no acute distress
HEENT: Normocephalic, Atraumatic and Moist Mucous Membranes
Respiratory: Decreased breath sounds bilaterally; Negative Wheezes, Rales or Rhonchi
Cardiac: Regular Rhythm, tachycardic, and S1/S2
GI: Soft, Nontender and Nondistended
Musculoskeletal: No Clubbing, No Cyanosis. Bilateral lower extremity edema. Tenderness in both lower extremities.
Neuro: Awake, Alert and Oriented, no gross neurological deficit
Psych: Anxious
A/P:
Massive PE and right acute DVT:
Status post tPA upon admission.
Will change heparin drip to oral Eliquis today
Will start increasing ambulation
Discussed with family prior
Cardiogenic shock:
Resolved
Due to PE
Status post fluid and pressors now off both of them.
Acute hypoxic respiratory failure:
Resolved
Due to PE
Anticoagulation
Oxygen supplementation
Elevated troponin:
Due to PE from right ventricular strain
Diabetes mellitus type 2:
Insulin sliding scale
Hypertension:
Initially antihypertensives were held
Resume ABDIRAHMAN inhibitor today
CODE STATUS:
Full code
Total time spent on today's encounter was 52 minutes which included time spent in counseling the patient/family regarding diagnosis and treatment plan as listed above, goals of care, and symptom management. Case was discussed with nursing staff,
specialists, and care coordinators/case management. All labs and imaging personally reviewed by me. Remainder the time spent in detailed review of previous records, lab data, imaging, and other medical provider documentation.
Anticipated Discharge: 24 - 48 hours
Subjective/Interval History
-
Date of Service: October 22, 2024
Patient doing well. No chest pain or shortness of breath. Afebrile
Objective Data
-
Labs:
Laboratory Results
10/21/24 10/22/24 10/22/24
22:52 05:45 14:00
WBC 6.8
Hgb 13.1
Hct 39.1
Plt Count 176
APTT 64.4 H > 200 H* Pending
Sodium 138
Potassium 4.2
Chloride 106
Carbon Dioxide 26
BUN 13
Creatinine 0.7
Glucose 116 H
Calcium 8.5
Vital Signs:
Vital Signs
Temp Pulse Resp BP Pulse Ox
98.3 F 79 20 151/95 98
10/22/24 07:31 10/22/24 07:52 10/22/24 07:31 10/22/24 07:52 10/22/24 07:31
I&O
10/21/24 10/22/24 10/23/24
06:59 06:59 06:59
Intake Total 1340.0 / 1355.0 1135 / 1135 240 / 240
Output Total 350 / 350 1400 / 1400
Balance 990.0 / 1005.0 -265 / -265 240 / 240
[2024-10-22] MEDS: ELIQUIS 10 MG PO ×2 (09:00→19:46)
--- NOTE | 2024-10-22 11:25 | PTCARENOTE ---
RN called in to room by PT/OT after they had gotten patient up to chair. Patient was complaining of chest pain/tightness radiating to her back. Vitals taken, BP 146/101, HR 94, 97% on Room Air. Pt on the tele monitor, EKG obtained. Pain went away
within 2 minutes. Awaiting CXR.
[2024-10-22 11:39] LABS: Glucose - Point of Care 144 mg/dl (70-99)
--- NOTE | 2024-10-22 12:23 | CM ---
CM reviewed chart, patient seen bedside, recognized patient from previous admission. Patient reports she came from [facility], was there about three weeks, did not have a good experience and will not be returning. Patient provided with
[email or web address] to look into local facilities, requesting [facility] to [facility], [facility], [facility], [facility]. CM will continue to follow for all discharge planning needs.
Plan; SNF pending accepting facility, referrals sent
--- NOTE | 2024-10-22 14:56 | W.PN.PUL.V3 ---
Today's Communication / Plan
-
Wean oxygen
Increase activity
Continue Eliquis
Return to rehab in the near future
Assessment
-
69-year-old morbidly obese non-smoking female with a history of hypertension, hyperlipidemia and ambulatory dysfunction presented from rehab with increasing shortness of breath and found to be tachycardic, hypotensive with submassive pulmonary
emboli with evidence for right ventricular strain-emergent thrombolytics provided-correction officer consulted for massive pulmonary embolism/hypotension/post lytics/critical care management 10/20/2024.
Submassive/massive pulmonary embolism with right ventricular strain
Persistent tachycardia, hypotension despite fluids requiring pressors-thrombolytics provided
Provoked-ambulatory dysfunction and rehab
[id number] V high risk
Right lower extremity DVT
Ambulatory dysfunction
Hyperglycemia
Elevated LFTs
Elevated troponin
Conditions present prior to admission:
Recent hospitalization-acute on top of chronic ambulatory dysfunction, right breast abscess-10/01/2024-subsequently went to rehab
Morbid obesity-class III-BMI 56
Chronic lower extremity edema.
Sciatica.
Ambulatory dysfunction.
Right breast abscess/lesion/cellulitis/drainage.
L4-5 disc herniation.
Neuropathy.
Diabetes.
Fatty liver.
Steroid injections lumbar area.
Left knee replacement 2021.
Plan
Hemodynamics stable
Supplemental oxygen as needed-continue to wean
Assess discharge supplemental oxygen needs
Aspiration precautions
Incentive spirometry encouraged
CT chest personally reviewed-see below
Echocardiogram 10/20/2024-EF 65%, enlarged right ventricle with hypokinesis, no valvular disease, PA systolic estimated 30
Lower extremity ultrasound 10/20/2024-new occlusive DVT right popliteal vein
May need eventual hypercoagulable workup-though this event appears to have been provoked-sedentary with ambulatory dysfunction
Full PESI summarized above
Heparin converted to Eliquis-continue for minimum 3 to 6 months with subsequent evaluation-right lower extremity ultrasound/CT chest and consideration towards hypercoagulable workup as well
Benefits and risks of thrombolytics therapy were reviewed with patient
Benefits outweigh the risks in this patient unresponsive to wide-open IV fluids and continues to be hypotensive, pressor dependent, hypoxemic and tachycardic-increased risk of bleed has been reviewed-once again benefits outweigh the risks
Begin to mobilize
Physical therapy
Monitor blood sugar
Insulin supplementation as needed
Follow LFTs
Trend troponin-peaked at 3.6 and now down to 1.8
DVT prophylaxis-on full anticoagulation
Nutrition-overall significant weight loss recommended in this morbidly obese patient
Physical therapy
Dr. Raines reviewed with daughter on multidisciplinary rounds 10/20/2024
Outpatient pulmonary and sleep disordered breathing workup-significant risk based on history-told patient and daughter needs workup-they are in agreement
Reviewed with nursing
Diagnostic data:
Chest x-ray 10/20/2024-mild bibasilar atelectasis, mild cardiomegaly
CT chest 04/10/2023-cholelithiasis, no pulmonary abnormalities with exception of mild subpleural scarring
CT chest 10/20/2024-large volume bilateral pulmonary emboli distal right main pulmonary artery, lobar right pulmonary arteries subsegmental pulmonary arteries in the right lower lobe right middle lobe and right upper lobe, pulm emboli also within
distal left main as well as left upper lobe and left lower lobe, positive RV strain RV: LV ratio 3.3
Lower extremity ultrasound 09/27/2024-no lower extremity evidence for DVT
Lower extremity ultrasound 10/20/2024-new occlusive DVT in the right popliteal vein
Subjective Data
-
Date of Service:
Date of Service: October 22, 2024
Chief Complaint: Pulmonary Follow Up and Dyspnea Follow Up
Subjective:
Feels much better, less short of breath, no shortness of breath at rest, chest pain, pleurisy, abdominal pain
Review of Systems
General: Other (Per HPI)
Objective Data
Data Reviewed
Vital Signs / I&O:
Vital Signs
Temp Pulse Resp BP Pulse Ox
98 F 84 18 146/101 97
10/22/24 11:32 10/22/24 11:32 10/22/24 11:32 10/22/24 11:32 10/22/24 11:32
Intake and Output
10/21/24 10/22/24 10/23/24
06:59 06:59 06:59
Intake Total 1340.0 / 1355.0 1135 / 1135 720 / 720
Output Total 350 / 350 1400 / 1400 1150 / 1150
Balance 990.0 / 1005.0 -265 / -265 -430 / -430
SaO2: 97
Nasal Cannula flow liters per minute: 4
Physical Exam
General: Respiratory Distress (n) and Comfortable
HEENT: Normocephalic, Anicteric and Moist Mucous Membranes
Cardiovascular: Regular Rhythm
Respiratory: Wheeze (n), Crackles (n), Rhonchi (n), Non-Labored Respirations, Accessory Resp Muscle Use (n) and Stridor (n)
GI: Soft, Non Distended and Non Tender
Neurology: Awake, Alert and No Motor Deficits
Skin: Warm, Good Color and Cyanosis (n)
Labs/Micro/Reports
Lab Data
10/22/24 05:45
10/22/24 05:45
Laboratory Results
10/21/24 10/21/24 10/22/24
15: 22:52 05:45
APTT 80.9 H 64.4 H > 200 H*
10/22/24
14:00
APTT Cancelled
Microbiology
10/20/24 08:58 Nasal Swab Influenza Types A & B (ALEXYS) - Final
Negative for Influenza A & B, NAAT
Negative results must be combined with clinical observations
and patient history.
Nucleic Acid Amplification test (NAAT)performed on the
[employer] platform.
[2024-10-22 17:05] LABS: Glucose - Point of Care 162 mg/dl (70-99)
[2024-10-22] MEDS: NOVOLOG FLEXPEN-MODERATE RESISTANCE 1 UNITS SC (17:15)
[2024-10-22 21:31] LABS: Glucose - Point of Care 163 mg/dl (70-99)
[2024-10-22] MEDS: LANTUS 0.1 UNITS SC (21:40)
[2024-10-22] MEDS: ZESTRIL 5 MG PO (21:41)
[2024-10-23 03:20] VITALS: BP 142/80
[2024-10-23 06:00] VITALS: BMI 57.7
[2024-10-23] MEDS: TYLENOL 650 MG PO ×2 (06:15→22:44)
--- NOTE | 2024-10-23 06:47 | W.PN.HOSP.TC ---
Today's Communication/Plan
-
Medically stable for discharge pending SNF placement.
Assessment / Plan
Assessment / Plan
Physical exam:
General: No acute distress, appears comfortable at this time.
HEENT: Normocephalic, Atraumatic and Moist Mucous Membranes
Respiratory: clear to auscultation b/l; Negative Wheezes, Rales or Rhonchi
Cardiac: S1/S2 NSR
GI: Soft, Nontender and Nondistended
Musculoskeletal: No Clubbing, No Cyanosis. Bilateral lower extremity edema. Chronic venous stasis changes noted lower ext's b/l
Neuro: AOx3
Psych: Calm
A/P: 69F Obesity HTN DM presents from SNF rehab d/t Acute PE/DVT cardiogenic shock and acute respiratory failure treated with tPA on admission. Patient since improved, weaned off oxygen supplementation, and transitioned from hep gtt to Eliquis.
Massive PE and right acute DVT:
Status post tPA upon admission.
heparin gtt transitioned to Eliquis, cont
Cardiogenic shock:
Resolved
Due to PE
IVF and pressors completed
Acute hypoxic respiratory failure:
Resolved
Due to PE
Anticoagulation
weaned off oxygen supplementation, stable respiratory status on room air at rest
Home Oxygen Assessment prior to discharge
Elevated troponin:
Due to PE from right ventricular strain
Trended down from peak 3.640
Diabetes mellitus type 2:
Insulin sliding scale
Hypertension:
Initially antihypertensives held d/t shock as above
Since resumed
cont home Lasix and Lisinopril
CODE STATUS:
Full code
Medically stable for discharge pending SNF placement
I spent a total of 40 minutes with the patient or on the floor. More than 50% of this time involved counseling and coordination of care.
Anticipated Discharge: Within 24 hours
Subjective/Interval History
-
Date of Service: October 23, 2024
No acute distress sitting up comfortably in chair. Overall reports feeling well. stable respiratory status on room air. Denies current chest pain at rest.
Objective Data
-
Labs:
Laboratory Results
10/23/24
06:00
WBC Pending
Hgb Pending
Hct Pending
Plt Count Pending
Sodium Pending
Potassium Pending
Chloride Pending
Carbon Dioxide Pending
BUN Pending
Creatinine Pending
Glucose Pending
Calcium Pending
Vital Signs:
Vital Signs
Temp Pulse Resp BP Pulse Ox
97.7 F 54 18 142/80 94
10/23/24 03:20 10/23/24 03:20 10/23/24 03:20 10/23/24 03:20 10/23/24 03:20
I&O
10/21/24 10/22/24 10/23/24
06:59 06:59 06:59
Intake Total 1340.0 / 1355.0 1135 / 1135 1200 / 1200
Output Total 350 / 350 1400 / 1400 1750 / 1750
Balance 990.0 / 1005.0 -265 / -265 -550 / -550
[2024-10-23 07:05] VITALS: BP 135/76
[2024-10-23] MEDS: CYMBALTA DELAYED RELEASE 30 MG PO (07:50)
[2024-10-23] MEDS: LASIX 40 MG PO (07:50)
[2024-10-23] MEDS: ELIQUIS 10 MG PO ×2 (07:50→20:40)
[2024-10-23] MEDS: LIPITOR 10 MG PO (07:51)
[2024-10-23] MEDS: DESENEX/MITRAZOL/ZEASORB 1 APPLIC TOPICAL ×2 (07:51→20:41)
[2024-10-23 08:30] LABS: Glucose - Point of Care 136 mg/dl (70-99)
[2024-10-23] MEDS: NOVOLOG FLEXPEN-MODERATE RESISTANCE SC (08:46)
[2024-10-23 09:19] LABS: % Basophils 0.9 % (0-2); % Eosinophils 5.6 % (0-6); % Immature Granulocytes 1.3 % (0-0.5); % Lymphocytes 27.1 % (20.5-51.1); % Monocytes 15.6 % (1.7-9.3); % Neutrophils 49.5 % (42.2-75.2); Absolute Basophils 0.1 10^3/uL (0-0.2); Absolute Eosinophils 0.3 10^3/uL (0-0.7); Absolute Immature Granulocytes 0.1 10^3/uL (0-0.05); Absolute Lymphocytes 1.5 10^3/uL (1.2-3.4); Absolute Monocytes 0.8 10^3/uL (0.1-0.6); Absolute Neutrophils 2.7 10^3/uL (1.4-6.5); Hematocrit 42.3 % (37.0-47.0); Mean Corp Hgb Conc. 33.1 g/dL (33.0-37.0); Mean Corpuscular Hgb 27.6 pg (27.0-31.0); Mean Corpuscular Volume 83.4 fL (81.0-99.0); Mean Platelet Volume 10.8 fL (7.4-10.4); Nucleated Red Blood Cells % 0 %; Platelet Count 204 10^3/uL (130-400); Red Blood Cell Count 5.07 10^6/uL (4.20-5.40); Red Cell Dist. Width 14.2 % (11.5-14.5); White Blood Cell Count 5.4 10^3/uL (4.8-10.8)
[2024-10-23 09:50] LABS: Blood Urea Nitrogen 13 mg/dl (7-17); Calcium 9.1 mg/dl (8.4-10.2); Carbon Dioxide 27 mmol/L (22-30); Chloride 102 mmol/L (98-107); Estimated Creatinine Clearance 122 ml/min; Glucose 122 mg/dl (70-99); Potassium 4.3 mmol/L (3.5-5.1); Sodium 137 mmol/L (135-145); eGFR > 60.00
--- NOTE | 2024-10-23 10:02 | W.PN.PUL.V3 ---
Today's Communication / Plan
-
.
Increase activity.
Physical therapy.
Continue Eliquis
Probable return to rehabilitation-for now Pulmonary will sign off.
Outpatient pulmonary follow-up
Assessment
-
69-year-old morbidly obese non-smoking female with a history of hypertension, hyperlipidemia and ambulatory dysfunction presented from rehab with increasing shortness of breath and found to be tachycardic, hypotensive with submassive pulmonary
emboli with evidence for right ventricular strain-emergent thrombolytics provided-towel stretcher consulted for massive pulmonary embolism/hypotension/post lytics/critical care management 10/20/2024.
Submassive/massive pulmonary embolism with right ventricular strain
Persistent tachycardia, hypotension despite fluids requiring pressors-thrombolytics provided
Provoked-ambulatory dysfunction and rehab
[id number] V high risk
Right lower extremity DVT
Ambulatory dysfunction
Hyperglycemia
Elevated LFTs
Elevated troponin
Conditions present prior to admission:
Recent hospitalization-acute on top of chronic ambulatory dysfunction, right breast abscess-10/01/2024-subsequently went to rehab
Morbid obesity-class III-BMI 56
Chronic lower extremity edema.
Sciatica.
Ambulatory dysfunction.
Right breast abscess/lesion/cellulitis/drainage.
L4-5 disc herniation.
Neuropathy.
Diabetes.
Fatty liver.
Steroid injections lumbar area.
Left knee replacement 2021.
Plan
Respiratory status is improved significantly
Supplemental oxygen as needed--currently on room ai, -97% saturation at rest
Assess discharge supplemental oxygen needs
Aspiration precautions
Incentive spirometry encouraged
CT chest personally reviewed-see below
Echocardiogram 10/20/2024-EF 65%, enlarged right ventricle with hypokinesis, no valvular disease, PA systolic estimated 30
Lower extremity ultrasound 10/20/2024-new occlusive DVT right popliteal vein
May need eventual hypercoagulable workup-though this event appears to have been provoked-sedentary with ambulatory dysfunction
Full PESI summarized above
Heparin converted to Eliquis-continue for minimum 3 to 6 months with subsequent evaluation-right lower extremity ultrasound/CT chest and consideration towards hypercoagulable workup as well
Benefits and risks of thrombolytics therapy were reviewed with patient
Benefits outweigh the risks in this patient unresponsive to wide-open IV fluids and continues to be hypotensive, pressor dependent, hypoxemic and tachycardic-increased risk of bleed has been reviewed-once again benefits outweigh the risks
Begin to mobilize
Physical therapy
Monitor blood sugar
Insulin supplementation as needed
Follow LFTs
Trend troponin-peaked at 3.6 and now down to 1.8
DVT prophylaxis-on full anticoagulation
Nutrition-overall significant weight loss recommended in this morbidly obese patient
Physical therapy
Dr. Raines reviewed with daughter on multidisciplinary rounds 10/20/2024
Outpatient pulmonary and sleep disordered breathing workup-significant risk based on history-told patient and daughter needs workup-they are in agreement
Reviewed with nursing
Diagnostic data:
Chest x-ray 10/20/2024-mild bibasilar atelectasis, mild cardiomegaly
CT chest 04/10/2023-cholelithiasis, no pulmonary abnormalities with exception of mild subpleural scarring
CT chest 10/20/2024-large volume bilateral pulmonary emboli distal right main pulmonary artery, lobar right pulmonary arteries subsegmental pulmonary arteries in the right lower lobe right middle lobe and right upper lobe, pulm emboli also within
distal left main as well as left upper lobe and left lower lobe, positive RV strain RV: LV ratio 3.3
Lower extremity ultrasound 09/27/2024-no lower extremity evidence for DVT
Lower extremity ultrasound 10/20/2024-new occlusive DVT in the right popliteal vein
Subjective Data
-
Date of Service:
Date of Service: October 23, 2024
Chief Complaint: Pulmonary Follow Up and Dyspnea Follow Up
Subjective:
Out of bed, much improved, no complaints shortness breath, chest pain, chest tightness, pleurisy, abdominal pain or progressive lower extremity edema
Review of Systems
General: Other (per HPI)
Objective Data
Data Reviewed
Vital Signs / I&O:
Vital Signs
Temp Pulse Resp BP Pulse Ox
98.9 F 62 17 135/76 97
10/23/24 07:05 10/23/24 07:50 10/23/24 07:05 10/23/24 07:50 10/23/24 07:05
Intake and Output
10/22/24 10/23/24 10/24/24
06:59 06:59 06:59
Intake Total 1135 / 1135 1200 / 1200
Output Total 1400 / 1400 1750 / 1750
Balance -265 / -265 -550 / -550
SaO2: 97
Nasal Cannula flow liters per minute: 4
Physical Exam
General: Respiratory Distress (n) and Comfortable
HEENT: Normocephalic, Anicteric and Moist Mucous Membranes
Cardiovascular: Regular Rhythm, Murmur and Peripheral Edema ( 2+)
Respiratory: Wheeze (n), Crackles (n), Rhonchi (n), Non-Labored Respirations, Accessory Resp Muscle Use (n) and Stridor (n)
GI: Soft, Non Distended and Non Tender
Neurology: Awake, Alert and No Motor Deficits
Skin: Warm, Good Color and Cyanosis (n)
Labs/Micro/Reports
Lab Data
10/23/24 07:32
10/23/24 07:32
Microbiology
10/21/24 17:49 Nose MRSA Screen - Final
No Methicillin Resistant Staphylococcus aureus isolated.
10/20/24 08:58 Nasal Swab Influenza Types A & B (ALEXYS) - Final
Negative for Influenza A & B, NAAT
Negative results must be combined with clinical observations
and patient history.
Nucleic Acid Amplification test (NAAT)performed on the
[employer] platform.
[2024-10-23 12:57] LABS: Glucose - Point of Care 152 mg/dl (70-99)
[2024-10-23] MEDS: NOVOLOG FLEXPEN-MODERATE RESISTANCE 1 UNITS SC ×2 (13:41→17:31)
[2024-10-23 15:00] VITALS: BP 138/65
--- NOTE | 2024-10-23 15:24 | CM ---
CM reviewed chart, reviewed SNF referrals: [facility] unable to accept due to no bariatric equipment, awaiting response from [facility] (closed today due to Holiday). CM will continue to follow for all
discharge planning needs.
Plan; SNF once facility found, no auth required.
[2024-10-23 16:47] LABS: Glucose - Point of Care 155 mg/dl (70-99)
[2024-10-23 19:30] VITALS: BP 132/92
[2024-10-23 19:48] VITALS: BP 126/83
[2024-10-23 21:15] LABS: Glucose - Point of Care 143 mg/dl (70-99)
[2024-10-23] MEDS: ZESTRIL 5 MG PO (21:56)
[2024-10-23] MEDS: LANTUS 0.1 UNITS SC (21:58)
[2024-10-23 23:30] VITALS: BP 116/78
[2024-10-24] MEDS: TUMS CHEWABLE TABLET 200 MG PO (02:57)
[2024-10-24 03:38] VITALS: BP 141/96
[2024-10-24] MEDS: ULTRAM 50 MG PO ×2 (05:44→18:06)
[2024-10-24 05:49] VITALS: BMI 57.1
[2024-10-24 07:00] VITALS: BP 137/103
--- NOTE | 2024-10-24 08:05 | W.PN.HOSP.TC ---
Today's Communication/Plan
-
Medically stable for discharge pending SNF rehab placement
Assessment / Plan
Assessment / Plan
Physical exam:
General: No acute distress, appears comfortable at this time.
HEENT: Normocephalic, Atraumatic and Moist Mucous Membranes
Respiratory: clear to auscultation b/l; Negative Wheezes, Rales or Rhonchi
Cardiac: S1/S2 NSR
GI: Soft, Nontender and Nondistended
Musculoskeletal: No Clubbing, No Cyanosis. Bilateral lower extremity edema. Chronic venous stasis changes noted lower ext's b/l
Neuro: AOx3
Psych: Calm
A/P: 69F Obesity HTN DM presents from SNF rehab d/t Acute PE/DVT cardiogenic shock and acute respiratory failure treated with tPA on admission. Patient since improved, weaned off oxygen supplementation, and transitioned from hep gtt to Eliquis.
Massive PE and right acute DVT:
Status post tPA upon admission.
heparin gtt transitioned to Eliquis, cont
Cardiogenic shock:
Resolved
Due to PE
IVF and pressors completed
Acute hypoxic respiratory failure:
Resolved
Due to PE
Anticoagulation
weaned off oxygen supplementation, stable respiratory status on room air at rest
Home Oxygen Assessment prior to discharge
Elevated troponin:
Due to PE from right ventricular strain
Trended down from peak 3.640
Diabetes mellitus type 2:
Insulin sliding scale
Hypertension:
Initially antihypertensives held d/t shock as above
Since resumed
cont home Lasix and Lisinopril
Intermittent Muscle Cramping
-resumed home Tizanidine 4 mg TID
CODE STATUS:
Full code
Medically stable for discharge pending SNF placement
I spent a total of 40 minutes with the patient or on the floor. More than 50% of this time involved counseling and coordination of care.
Anticipated Discharge: Within 24 hours
Subjective/Interval History
-
Date of Service: October 24, 2024
No acute distress resting comfortably in chair. Reports muscle cramping with exertion.
Objective Data
-
Vital Signs:
Vital Signs
Temp Pulse Resp BP Pulse Ox
98.4 F 78 14 141/96 94
10/24/24 03:38 10/24/24 03:38 10/24/24 03:38 10/24/24 03:38 10/24/24 03:38
I&O
10/23/24 10/24/24 10/25/24
06:59 06:59 06:59
Intake Total 1200 / 1200 2220 / 2220
Output Total 1750 / 1750 350 / 350
Balance -550 / -550 1870 / 1870
[2024-10-24 08:39] LABS: Glucose - Point of Care 157 mg/dl (70-99)
[2024-10-24] MEDS: CYMBALTA DELAYED RELEASE 30 MG PO (11:20)
[2024-10-24] MEDS: ELIQUIS 10 MG PO ×2 (11:20→21:00)
[2024-10-24] MEDS: LASIX 40 MG PO (11:20)
[2024-10-24] MEDS: NOVOLOG FLEXPEN-MODERATE RESISTANCE 1 UNITS SC ×2 (11:21→18:03)
[2024-10-24] MEDS: LIPITOR 10 MG PO (11:25)
[2024-10-24] MEDS: DESENEX/MITRAZOL/ZEASORB 1 APPLIC TOPICAL ×2 (11:27→21:00)
[2024-10-24 11:44] LABS: Glucose - Point of Care 232 mg/dl (70-99)
[2024-10-24 12:04] VITALS: BP 116/80
[2024-10-24] MEDS: NOVOLOG FLEXPEN-MODERATE RESISTANCE 3 UNITS SC (14:06)
[2024-10-24 15:21] VITALS: BP 128/76
--- NOTE | 2024-10-24 16:47 | CM ---
[facility] have no beds.
[facility]
PLAN To SNf after located
[2024-10-24 16:58] LABS: Glucose - Point of Care 191 mg/dl (70-99)
[2024-10-24 20:51] LABS: Glucose - Point of Care 143 mg/dl (70-99)
[2024-10-24] MEDS: ZESTRIL 5 MG PO (21:12)
[2024-10-24] MEDS: ZANAFLEX 4 MG PO (21:14)
[2024-10-24] MEDS: LANTUS 0.1 UNITS SC (21:14)
[2024-10-24 23:36] VITALS: BP 137/88
--- NOTE | 2024-10-25 02:39 | DOWNTIME ---
There was a [employer] Client Medical Billing Supervisor Downtime on 10/25/2024 from 0100 to 10/25/2023 at 0235 . Downtime documentation of patient's care, including medication administrations, has been reconciled in the electronic record per guidelines. Refer to the
patient's paper chart under the miscellaneous tab to see printed paper medication records and downtime forms.
[2024-10-25] MEDS: ULTRAM 50 MG PO ×2 (02:40→16:47)
[2024-10-25 03:30] VITALS: BP 114/74
[2024-10-25 04:04] VITALS: BMI 57.0
--- NOTE | 2024-10-25 06:53 | W.PN.HOSP.TC ---
Today's Communication/Plan
-
Medically stable for discharge pending SNF rehab placement
Assessment / Plan
Assessment / Plan
Physical exam:
General: No acute distress, appears comfortable at this time.
HEENT: Normocephalic, Atraumatic and Moist Mucous Membranes
Respiratory: clear to auscultation b/l; Negative Wheezes, Rales or Rhonchi
Cardiac: S1/S2 NSR
GI: Soft, Nontender and Nondistended
Musculoskeletal: No Clubbing, No Cyanosis. Bilateral lower extremity edema. Chronic venous stasis changes noted lower ext's b/l
Neuro: AOx3
Psych: Calm
A/P: 69F Obesity HTN DM presents from SNF rehab d/t Acute PE/DVT cardiogenic shock and acute respiratory failure treated with tPA on admission. Patient since improved, weaned off oxygen supplementation, and transitioned from hep gtt to Eliquis.
Massive PE and right acute DVT:
Status post tPA upon admission.
heparin gtt transitioned to Eliquis, cont
Cardiogenic shock:
Resolved
Due to PE
IVF and pressors completed
Acute hypoxic respiratory failure:
Resolved
Due to PE
Anticoagulation
weaned off oxygen supplementation, stable respiratory status on room air
Elevated troponin:
Due to PE from right ventricular strain
Trended down from peak 3.640
Diabetes mellitus type 2:
Insulin sliding scale
Novolog 3U AC
Lantus 10U
Hypertension:
Initially antihypertensives held d/t shock as above
Since resumed
cont home Lasix and Lisinopril
Intermittent Muscle Cramping
-Tizanidine 4 mg TID
CODE STATUS:
Full code
Medically stable for discharge pending SNF placement
I spent a total of 40 minutes with the patient or on the floor. More than 50% of this time involved counseling and coordination of care.
Anticipated Discharge: Within 24 hours
Subjective/Interval History
-
Date of Service: October 25, 2024
no acute distress. continues to endorse intermittent muscle cramping despite restart muscle relaxant. noted RLE pain/burning earlier morning similar to first presentation of DVT but milder, transient, eventually resolved
Objective Data
-
Vital Signs:
Vital Signs
Temp Pulse Resp BP Pulse Ox
98.5 F 60 14 114/74 95
10/25/24 03:30 10/25/24 03:30 10/25/24 03:30 10/25/24 03:30 10/25/24 03:30
I&O
10/23/24 10/24/24 10/25/24
06:59 06:59 06:59
Intake Total 1200 / 1200 2220 / 2220 460 / 460
Output Total 1750 / 1750 350 / 350 300 / 300
Balance -550 / -550 1870 / 1870 160 / 160
[2024-10-25 07:00] VITALS: BP 133/88
[2024-10-25 07:25] LABS: Glucose - Point of Care 155 mg/dl (70-99)
[2024-10-25] MEDS: NOVOLOG FLEXPEN-MODERATE RESISTANCE 1 UNITS SC ×2 (08:15→16:48)
[2024-10-25] MEDS: CYMBALTA DELAYED RELEASE 30 MG PO (08:16)
[2024-10-25] MEDS: ZANAFLEX 4 MG PO ×3 (08:16→21:09)
[2024-10-25] MEDS: ELIQUIS 10 MG PO ×2 (08:16→21:11)
[2024-10-25] MEDS: LASIX 40 MG PO (08:16)
[2024-10-25] MEDS: LIPITOR 10 MG PO (08:17)
[2024-10-25] MEDS: DESENEX/MITRAZOL/ZEASORB 1 APPLIC TOPICAL ×2 (08:17→21:12)
--- NOTE | 2024-10-25 11:44 | CM ---
Addendum entered by Mimi Covington 10/25/24 14:18:
CM spoke with patient, does not want referral to [place] or [facility], requesting referrals to [place] and [facility].
Original Note:
CM reviewed chart, met with patient bedside, discussed no beds at [facility]. Patient tearful, additional referrals to be sent to [facility], [facility], [facility], and [facility]. Patient inquiring about acute rehab, per liaison
at [place], patient does not have an acute rehab diagnosis, patient understands. CM will continue to follow for all discharge planning needs.
Plan; SNF, additional referrals placed, awaiting accepting facility.
[2024-10-25 11:45] LABS: Glucose - Point of Care 206 mg/dl (70-99)
[2024-10-25] MEDS: NOVOLOG FLEXPEN-MODERATE RESISTANCE 3 UNITS SC (12:54)
[2024-10-25 15:00] VITALS: BP 118/78
[2024-10-25] MEDS: TYLENOL 650 MG PO (15:03)
[2024-10-25 16:46] LABS: Glucose - Point of Care 162 mg/dl (70-99)
[2024-10-25 21:08] LABS: Glucose - Point of Care 140 mg/dl (70-99)
[2024-10-25] MEDS: LANTUS 0.1 UNITS SC (21:10)
[2024-10-25] MEDS: ZESTRIL 5 MG PO (21:17)
[2024-10-25 21:21] VITALS: BP 111/79
[2024-10-25 23:18] VITALS: BP 134/78
[2024-10-26 02:05] VITALS: BP 136/85; PULSE 84; O2SAT 96
[2024-10-26] MEDS: ULTRAM 50 MG PO (04:52)
[2024-10-26 06:00] VITALS: BMI 56.6
--- NOTE | 2024-10-26 06:38 | PTCARENOTE ---
Patient's L foot is a brighter red and looks to be spreading out more on the top of the foot towards the outer ankle since the start of shift. Positive pedal pulses with doppler. Patient reports some numbness and throbbing in L foot. Patient also
reports increased swelling in her R foot and is concerned about DVT. Patient plans to discuss with MD. Day shift nurse made aware during shift report.
[2024-10-26 07:00] VITALS: BP 114/84
[2024-10-26 07:57] LABS: Glucose - Point of Care 162 mg/dl (70-99)
--- NOTE | 2024-10-26 07:59 | W.PN.HOSP.TC ---
Addendum entered and electronically signed by Lin Knox MD 10/27/24 08:26:
Non-ischemic myocardial injury 2/2 PE with possible associate cor pulmonale
Original Note:
Today's Communication/Plan
-
start prednisone 40 mg daily
increase frequency tramadol to Q6HPRN
cont PT/OT
venous duplex check for worsening DVT despite Eliquis
Assessment / Plan
Assessment / Plan
Physical exam:
General: No acute distress, appears comfortable at this time.
HEENT: Normocephalic, Atraumatic and Moist Mucous Membranes
Respiratory: clear to auscultation b/l; Negative Wheezes, Rales or Rhonchi
Cardiac: S1/S2 NSR
GI: Soft, Nontender and Nondistended
Musculoskeletal: No Clubbing, No Cyanosis. Bilateral lower extremity edema. Chronic venous stasis changes noted lower ext's b/l. Erythema left foot painless no itching. Tenderness right ankle and lower calf
Neuro: AOx3
Psych: Calm
A/P: 69F Obesity HTN DM presents from SNF rehab d/t Acute PE/DVT cardiogenic shock and acute respiratory failure treated with tPA on admission. Patient since improved, weaned off oxygen supplementation, and transitioned from hep gtt to Eliquis.
Massive PE and right acute DVT:
Status post tPA upon admission.
heparin gtt transitioned to Eliquis, cont
severe right ankle pain with associate tenderness
elevated uric acid
suspect gout, prednisone 40 mg daily started
Tramadol frequency increased to Q6Hprn
venous duplex repeated in case of worsening dvt despite Eliquis
Cardiogenic shock:
Resolved
Due to PE
IVF and pressors completed
Acute hypoxic respiratory failure:
Resolved
Due to PE
Anticoagulation
weaned off oxygen supplementation, stable respiratory status on room air
Elevated troponin:
Due to PE from right ventricular strain
Trended down from peak 3.640
Diabetes mellitus type 2:
Insulin sliding scale
Novolog 3U AC
Lantus 10U
Hypertension:
Initially antihypertensives held d/t shock as above
Since resumed
cont home Lasix and Lisinopril
Intermittent Muscle Cramping
-Tizanidine 4 mg TID
CODE STATUS:
Full code
Medically stable for discharge pending SNF placement
I spent a total of 50 minutes with the patient or on the floor. More than 50% of this time involved counseling and coordination of care.
Anticipated Discharge: Within 24 hours
Subjective/Interval History
-
Date of Service: October 26, 2024
severe right ankle pain developed overnight along with erythema discoloration left foot (though left foot remains without pain/itching).
Objective Data
-
Vital Signs:
Vital Signs
Temp Pulse Resp BP Pulse Ox
98.3 F 81 18 134/78 95
10/25/24 23:18 10/25/24 23:18 10/25/24 23:18 10/25/24 23:18 10/25/24 23:18
I&O
10/25/24 10/26/24 10/27/24
06:59 06:59 06:59
Intake Total 460 / 460 480 / 480
Output Total 300 / 300 425 / 425
Balance 160 / 160 55 / 55
[2024-10-26] MEDS: NOVOLOG FLEXPEN-MODERATE RESISTANCE 1 UNITS SC ×2 (08:07→12:07)
[2024-10-26] MEDS: NOVOLOG FLEXPEN 3 UNITS SC ×3 (08:08→17:01)
[2024-10-26] MEDS: LIPITOR 10 MG PO (08:09)
[2024-10-26] MEDS: ELIQUIS 10 MG PO ×2 (08:09→20:50)
[2024-10-26] MEDS: LASIX 40 MG PO (08:09)
[2024-10-26] MEDS: ZANAFLEX 4 MG PO ×3 (08:09→20:50)
[2024-10-26] MEDS: CYMBALTA DELAYED RELEASE 30 MG PO (08:09)
[2024-10-26] MEDS: DESENEX/MITRAZOL/ZEASORB 1 APPLIC TOPICAL ×2 (08:10→20:50)
--- NOTE | 2024-10-26 08:13 | PTCARENOTE ---
Left foot reddened on outer half of foot , warm with a good pulse , no pain,. Right foot has burning sensation in calf and ankle did not subside even with pain medication. Good pulses via doppler ,hospitalist aware . Refused IV Morphine at present
, will continue to assess.
[2024-10-26 09:05] LABS: Lactic Acid 1.9 mmol/L (0.7-2.0)
[2024-10-26 09:06] LABS: Blood Urea Nitrogen 20 mg/dl (7-17); Calcium 9.7 mg/dl (8.4-10.2); Carbon Dioxide 27 mmol/L (22-30); Chloride 101 mmol/L (98-107); Estimated Creatinine Clearance 120 ml/min; Glucose 176 mg/dl (70-99); Magnesium 1.9 mg/dl (1.6-2.3); Phosphorus 3.8 mg/dl (2.5-4.5); Potassium 4.5 mmol/L (3.5-5.1); Sodium 135 mmol/L (135-145); eGFR > 60.00
[2024-10-26 09:25] LABS: Hematocrit 45.7 % (37.0-47.0); Mean Corp Hgb Conc. 32.8 g/dL (33.0-37.0); Mean Corpuscular Hgb 27.8 pg (27.0-31.0); Mean Corpuscular Volume 84.6 fL (81.0-99.0); Mean Platelet Volume 10.2 fL (7.4-10.4); Platelet Count 283 10^3/uL (130-400); Red Cell Dist. Width 14.5 % (11.5-14.5); White Blood Cell Count 7.4 10^3/uL (4.8-10.8)
[2024-10-26 09:46] LABS: Uric Acid 6.7 mg/dl (2.5-6.2)
[2024-10-26] MEDS: DELTASONE 40 MG PO (10:28)
--- NOTE | 2024-10-26 11:27 | CM ---
CM reviewed chart, patient off floor for ultrasound. CM returned and patient see bedside, discussed [facility] can accept pending bed availability, [facility] can offer a bed, [facility] can offer a bed pending bed availability. CM will continue to
follow for all discharge planning needs.
Plan; SNF, bed search continues, when medically stable.
[2024-10-26 12:07] LABS: Glucose - Point of Care 153 mg/dl (70-99)
[2024-10-26 12:48] VITALS: BP 115/72; PULSE 68; O2SAT 97
--- NOTE | 2024-10-26 14:51 | PN.CDI ---
CDI
- -
CDI:
Physician Documentation Request
Admit Date: 10/20/24 09:06
Dear Doctor Lisette,
Patient admitted with massive PE and right acute DVT.
10/24 PN, 'Elevated troponin: Due to PE from right ventricular strain.'
Please provide in your note the likely diagnosis associated with documented right ventricular strain:
Pulmonary emboli with acute cor pulmonale
Pulmonary emboli without acute cor pulmonale
Other
Use of terms such as suspected, likely, concern for, or probable (associated with a specific diagnosis that is being evaluated, monitored, or treated as if it exists) are acceptable and can be coded in the inpatient setting, when documented at the
time of discharge.
Thank you,
Aida ZAPATA,RN,CCDS
CDI Specialist
Available via [place] text
Please use your independent medical judgment in providing your response.
[2024-10-26 15:00] VITALS: BP 131/76
--- NOTE | 2024-10-26 15:01 | PN.CDI ---
CDI
- -
CDI:
Physician Documentation Request
Admit Date: 10/20/24 09:06
Dear Doctor Lisette,
Patient admitted with massive PE and right acute DVT.
10/24 PN, 'Elevated troponin: Due to PE from right ventricular strain.'
Troponin levels documented below:
Laboratory Tests
10/20/24 10/20/24 10/20/24
08:04 14:42 22:28
Troponin I 0.069 H* 2.760 H* D 3.640 H* D
10/21/24
06:15
Troponin I 1.860 H* D
Please provide in your note the diagnosis associated with documented elevated troponin:
Non-ischemic myocardial injury
Insignificant abnormal lab finding
Other
Use of terms such as suspected, likely, concern for, or probable (associated with a specific diagnosis that is being evaluated, monitored, or treated as if it exists) are acceptable and can be coded in the inpatient setting, when documented at the
time of discharge.
Thank you,
Aida ZAPATA,RN,CCDS
CDI Specialist
Available via [place] text
Please use your independent medical judgment in providing your response.
[2024-10-26 16:43] LABS: Glucose - Point of Care 212 mg/dl (70-99)
[2024-10-26] MEDS: NOVOLOG FLEXPEN-MODERATE RESISTANCE 3 UNITS SC (17:01)
[2024-10-26 20:48] VITALS: BP 138/85
[2024-10-26] MEDS: ZESTRIL 5 MG PO (20:50)
[2024-10-26] MEDS: TUMS CHEWABLE TABLET 200 MG PO (21:15)
[2024-10-26 21:26] LABS: Glucose - Point of Care 249 mg/dl (70-99)
[2024-10-26] MEDS: LANTUS 0.1 UNITS SC (21:50)
[2024-10-26 23:35] VITALS: BP 110/68
[2024-10-27] MEDS: TUMS CHEWABLE TABLET 200 MG PO (04:35)
[2024-10-27] MEDS: ULTRAM 50 MG PO (05:34)
[2024-10-27 06:00] VITALS: BMI 56.8
--- NOTE | 2024-10-27 06:22 | W.PN.HOSP.TC ---
Addendum entered and electronically signed by Lin Knox MD 10/27/24 15:41:
Non-ischemic myocardial injury 2/2 PE with possible associate acute cor pulmonale
Original Note:
Today's Communication/Plan
-
discharge
Assessment / Plan
Assessment / Plan
Physical exam:
General: No acute distress, appears comfortable at this time.
HEENT: Normocephalic, Atraumatic and Moist Mucous Membranes
Respiratory: clear to auscultation b/l; Negative Wheezes, Rales or Rhonchi
Cardiac: S1/S2 NSR
GI: Soft, Nontender and Nondistended
Musculoskeletal: No Clubbing, No Cyanosis. Bilateral lower extremity edema. Chronic venous stasis changes noted lower ext's b/l. Erythema left foot painless no itching improving. Tenderness right ankle improving
Neuro: AOx3
Psych: Calm
A/P: 69F Obesity HTN DM presents from SNF rehab d/t Acute PE/DVT cardiogenic shock and acute respiratory failure treated with tPA on admission. Patient since improved, weaned off oxygen supplementation, and transitioned from hep gtt to Eliquis.
Massive PE and right acute DVT:
Status post tPA upon admission.
heparin gtt transitioned to Eliquis, cont
-Loading dose 10 mg BID last day 10/28/24 then reduce to 5 mg BID for at least 3 mo, follow up with Hematology outpt
severe right ankle pain with associate tenderness
elevated uric acid
suspect gout, prednisone 40 mg daily started with subsequent improvement in symptoms noted, will continue with prednisone taper reduction by 10 mg after every 3rd dose.
Tramadol frequency increased to Q6Hprn
venous duplex repeat appreciated right popliteal vein thrombus persists, no worsening noted
outpt follow up with Rheumatology recommended
Cardiogenic shock:
Resolved
Due to PE
IVF and pressors completed
Acute hypoxic respiratory failure:
Resolved
Due to PE
Anticoagulation
weaned off oxygen supplementation, stable respiratory status on room air
Elevated troponin:
Due to PE from right ventricular strain
Trended down from peak 3.640
Diabetes mellitus type 2:
Insulin sliding scale
Novolog 3U AC
Lantus 10U
Hypertension:
Initially antihypertensives held d/t shock as above
Since resumed
cont home Lasix and Lisinopril
Intermittent Muscle Cramping
-Tizanidine 4 mg TID
CODE STATUS:
Full code
Medically stable for discharge SNF rehab with outpatient follow up recommendations
discussed with patient
Total Time Preparing Discharge ___40____ minutes including examination of the patient, summary of the hospital stay, instructions for continuing care to all relevant caregivers; and preparation of discharge records, prescriptions, and referral
forms if necessary.
Anticipated Discharge: Today
Subjective/Interval History
-
Date of Service: October 27, 2024
Seen and examined at bedside in no acute distress sitting up comfortably in chair. Right ankle pain improved. Overall reports feeling well. Looking forward to going to rehab.
Objective Data
-
Vital Signs:
Vital Signs
Temp Pulse Resp BP Pulse Ox
98.4 F 59 20 110/68 98
10/26/24 23:35 10/26/24 23:35 10/26/24 23:35 10/26/24 23:35 10/27/24 05:11
I&O
10/25/24 10/26/24 10/27/24
06:59 06:59 06:59
Intake Total 460 / 460 480 / 480 360 / 360
Output Total 300 / 300 425 / 425 575 / 575
Balance 160 / 160 55 / 55 -215 / -215
[2024-10-27 07:20] VITALS: BP 129/88
[2024-10-27 07:24] LABS: Glucose - Point of Care 120 mg/dl (70-99)
[2024-10-27] MEDS: CYMBALTA DELAYED RELEASE 30 MG PO (08:25)
[2024-10-27] MEDS: PROTONIX 40 MG PO (08:25)
[2024-10-27] MEDS: LIPITOR 10 MG PO (08:25)
[2024-10-27] MEDS: LASIX 40 MG PO (08:25)
[2024-10-27] MEDS: ELIQUIS 10 MG PO (08:25)
[2024-10-27] MEDS: ZANAFLEX 4 MG PO (08:25)
[2024-10-27] MEDS: DELTASONE 40 MG PO (08:25)
[2024-10-27] MEDS: DESENEX/MITRAZOL/ZEASORB TOPICAL (08:26)
[2024-10-27] MEDS: NOVOLOG FLEXPEN-MODERATE RESISTANCE SC (08:26)
[2024-10-27] MEDS: NOVOLOG FLEXPEN 3 UNITS SC ×2 (09:07→12:18)
[2024-10-27 11:47] LABS: Glucose - Point of Care 191 mg/dl (70-99)
[2024-10-27] MEDS: NOVOLOG FLEXPEN-MODERATE RESISTANCE 1 UNITS SC (12:18)
--- NOTE | 2024-10-27 12:19 | CM ---
CM reviewed chart, patient seen bedside, discussed [facility] able [facility] accept patient today. IMM verbally reviewed, provided with copy, placed in chart. Patient will require WC Van transport, cost $120, scheduled for 3:30 p.m. transport. Emelia at
[facility] updated with transport time. CM will continue to follow for all discharge planning needs.
Plan; [facility], 3:30 p.m. Van transport
[facility]
Report: [phone]
--- NOTE | 2024-10-27 14:01 | W.DCSUMMARY ---
Discharge Summary
Discharge Data
Date of Admission: 10/20/24
Date of Discharge: 10/27/24
-
Pending Results: No
Discharge Plan
-
Patient Disposition: Residential/SNF
Discharge Diagnosis/Procedures: Massive Pulmonary Embolism (PE) and right acute Deep Vein Thrombosis (DVT)
Severe Right Ankle Pain suspected due to Gout, elevated uric acid level 6.7
Cardiogenic shock (secondary to PE) resolved
Acute hypoxic respiratory failure resolved
Diabetes mellitus type 2
Hypertension
Intermittent Muscle Cramping
Morbid Obesity
Condition: Fair
Diet: Diabetic, Carb Controlled
Activity: With assistance, As tolerated and With Walker
Driving Restrictions: Not until seen by your Dr
Bathing Restrictions: None
Others Tests: repeat CT chest and Peripheral Venous Duplex in 3 months of discharge with primary care provider and/or other healthcare provider involved in your care to follow up PE and DVT
Other Services: PT and OT
Activity Restrictions/Additional Instructions:
Please follow up with primary care provider in 1 week of discharge, Pulmonology in 2-3 weeks of discharge, and Hematology and Rheumatology in 2-4 weeks of discharge.
Eliquis has been prescribed for PE and DVT, 10 mg twice a day through 10/28/24 then reduce to 5 mg twice a day from then on.
A prednisone taper has been prescribed for acute right ankle gout flare:
40 mg daily x1 day, then 30 mg daily x3 days, then 20 mg daily x3 days, then 10 mg daily x3 days, then stop.
Protonix has been prescribed for GI prophylaxis while on steroids. Ok to discontinue when off steroids.
Tramadol prescribed as needed for moderate to severe pain.
Please take medications as prescribed/recommended and follow up with primary care provider and/or other healthcare provider involved in your care for refills and/or further adjustment to your medication regimen as necessary.
Referrals:
Jean Rothman I., DO [Family Provider] - in one week
Juanpablo Stephenson, DO [Active] - in two to four weeks
Girma Owen MD [Active] - in two to four weeks
Goyo Raines MD [Active] - in two to three weeks
(Massive pulmonary embolism, DVT, DANTE suspected
Dr. Raines or nurse practitioner)
Prescriptions:
New
prednisone 10 mg Tablet
See Rx Instructions .ROUTE .COMPLEX Qty: 22 0RF
Rx Instructions:
Take By Mouth:
40 mg daily x1 day, 30 mg daily x3 days,
20 mg daily x3 days, 10 mg daily x3 days.
pantoprazole 40 mg Tablet,Delayed Release (Dr/Ec)
40 mg PO DAILY Qty: 10 0RF
Eliquis 5 mg tablet
See Rx Instructions .ROUTE .COMPLEX Qty: 180 0RF
Rx Instructions:
10 mg twice a day through 10/28/24
Then reduce to maintenance dose 5 mg twice a day from then on
tramadol 50 mg tablet
50 mg PO Q6H PRN (Reason: moderate severe pain) Qty: 20 0RF
Continued
therapeutic multivitamin Tablet
1 tab PO DAILY
atorvastatin 10 mg Tablet
10 mg PO DAILY
lisinopril 5 mg Tablet
5 mg PO HS
furosemide 40 mg Tablet
40 mg PO DAILY Qty: 30 0RF
lidocaine 4 % Adhesive Patch,Medicated
2 patch topical DAILY Qty: 30 0RF
Rx Instructions:
Lower Back
tizanidine 2 mg Tablet
4 mg PO TID Qty: 42 0RF
cholecalciferol (vitamin D3) [Vitamin D3] 10 mcg (400 unit) Tablet
10 mcg PO DAILY Qty: 30 0RF
insulin aspart U-100 [Novolog FlexPen U-100 Insulin] 100 unit/mL (3 mL) insulin pen
8 unit SC TID Qty: 0 0RF
acetaminophen [Tylenol] 325 mg Tablet
650 mg PO Q4HPRN PRN (Reason: mild pain)
magnesium hydroxide [Milk of Magnesia] 400 mg/5 mL Suspension
2,400 mg PO DAILYPRN PRN (Reason: if no bm by 3rd day)
bisacodyl [Dulcolax (bisacodyl)] 10 mg Suppository
[address] DAILYPRN PRN (Reason: if no bm aftr mom)
Fleet Enema 19-7 gram/118 mL Enema
[address] DAILYPRN PRN (Reason: if no bm aftr dulcolax)
duloxetine [Cymbalta] 30 mg Capsule,Delayed Release(Dr/Ec)
30 mg PO DAILY
Analgesic [place] (bernardo-mentalex) 15-10 % cream
1 applic topical QID
insulin glargine [Lantus Solostar U-100 Insulin] 100 unit/mL (3 mL) insulin pen
10 unit SC HS
Discharge Orders:
Discharge Patient (As Directed); Ordered 10/27/24
Ordered By: Lin Knox
Discharge Date and Time
Print Language: KHMER
[2024-10-27 15:15] VITALS: BP 114/75
--- NOTE | 2024-10-27 15:40 | PTCARENOTE ---
Went over important discharge instructions with patient. Removed IV.
Report given to RN at [facility]. Patient transported to facility via wheelchair van.
== END 2024-10-27 15:50 | DRG 175 ==
LOC: 4 WEST ACU 09:06
PROVIDERS: ADMITTING PHYSICIAN Hospitalist; ATTENDING PHYSICIAN Internal Medicine; CONSULT PHYSICIAN Internal Medicine Critical Care Medicine; EMERGENCY PHYSICIAN Emergency Medicine; FAMILY PHYSICIAN Internal Medicine
PROC: 3E05317 Introduction of Other Thrombolytic into Peripheral Artery, Percutaneous Approach (ICD-10-PCS; 2024-10-20)
DX: I26.09 Other pulmonary embolism with acute cor pulmonale (principal); J96.01 Acute respiratory failure with hypoxia; R57.0 Cardiogenic shock; Z68.43 Body mass index [BMI] 50.0-59.9, adult; I82.431 Acute embolism and thrombosis of right popliteal vein; I5A Non-ischemic myocardial injury (non-traumatic); I10 Essential (primary) hypertension; E78.00 Pure hypercholesterolemia, unspecified; E11.40 Type 2 diabetes mellitus with diabetic neuropathy, unspecified; E11.65 Type 2 diabetes mellitus with hyperglycemia; M10.071 Idiopathic gout, right ankle and foot; E66.01 Morbid (severe) obesity due to excess calories; K76.0 Fatty (change of) liver, not elsewhere classified; Z11.52 Encounter for screening for COVID-19; Z99.3 Dependence on wheelchair; Z96.652 Presence of left artificial knee joint; Z88.2 Allergy status to sulfonamides; Z88.1 Allergy status to other antibiotic agents; Z88.5 Allergy status to narcotic agent; Z79.4 Long term (current) use of insulin; Z79.899 Other long term (current) drug therapy
CPT/HCPCS: 71045; 71275; 80048; 80053; 82962; 83605; 83735; 83880; 84100; 84484; 84550; 85025; 85027; 85730; 87070; 87502; 87811; 93005; 93306; 93970; 96365; 96375; 97163; 97167; 97530; 99291; 99292; J2997; Q9967

== ENCOUNTER → 2025-01-11 08:00 | Outpatient (REF) | payer MEDICARE, SELFPAY | LOC: RAD 08:00 | PROVIDERS: ATTENDING PHYSICIAN Internal Medicine; OTHER PHYSICIAN Internal Medicine Critical Care Medicine | DX: E11.9 Type 2 diabetes mellitus without complications (principal); Z79.4 Long term (current) use of insulin; E73.9 Lactose intolerance, unspecified | CPT/HCPCS: 93922; 93925 ==

== ENCOUNTER → 2025-02-13 14:37 | Outpatient (REF) | payer MEDICARE, SELFPAY | LOC: DHSLP 14:37 | PROVIDERS: ATTENDING PHYSICIAN Internal Medicine Critical Care Medicine; FAMILY PHYSICIAN Internal Medicine | DX: G47.33 Obstructive sleep apnea (adult) (pediatric) (principal); R09.02 Hypoxemia | CPT/HCPCS: 95800 ==

== ENCOUNTER 2025-02-18 10:00 | Emergency (ER) | payer MEDICARE, SELFPAY ==
[2025-02-18 10:06] VITALS: BP 130/89
[2025-02-18 10:23] LABS: % Basophils 1.1 % (0-2); % Eosinophils 2.5 % (0-6); % Immature Granulocytes 0.5 % (0-0.5); % Lymphocytes 24.8 % (20.5-51.1); % Monocytes 12.9 % (1.7-9.3); % Neutrophils 58.2 % (42.2-75.2); Absolute Basophils 0.1 10^3/uL (0-0.2); Absolute Eosinophils 0.1 10^3/uL (0-0.7); Absolute Lymphocytes 1.4 10^3/uL (1.2-3.4); Absolute Monocytes 0.7 10^3/uL (0.1-0.6); Absolute Neutrophils 3.3 10^3/uL (1.4-6.5); Hematocrit 42.5 % (37.0-47.0); Hemoglobin 14.2 g/dL (12.0-16.0); Mean Corp Hgb Conc. 33.4 g/dL (33.0-37.0); Mean Corpuscular Hgb 28.5 pg (27.0-31.0); Mean Corpuscular Volume 85.2 fL (81.0-99.0); Nucleated Red Blood Cells % 0 %; Platelet Count 208 10^3/uL (130-400); Red Blood Cell Count 4.99 10^6/uL (4.20-5.40); Red Cell Dist. Width 14.2 % (11.5-14.5); White Blood Cell Count 5.7 10^3/uL (4.8-10.8)
[2025-02-18 10:49] LABS: ALT (SGPT) 19 U/L (0-35); AST (SGOT) 22 U/L (14-36); Albumin 3.9 g/dl (3.5-5.0); Alkaline Phosphatase 117 U/L (38-126); Blood Urea Nitrogen 21 mg/dl (7-17); Calcium 9.8 mg/dl (8.4-10.2); Carbon Dioxide 21 mmol/L (22-30); Chloride 110 mmol/L (98-107); Glucose 198 mg/dl (70-99); Potassium 4.4 mmol/L (3.5-5.1); Sodium 139 mmol/L (135-145); Total Bilirubin 1.5 mg/dl (0.2-1.3); Total Protein 7.1 g/dl (6.3-8.2); eGFR > 60.00
[2025-02-18 11:00] VITALS: BP 123/72
--- NOTE | 2025-02-18 11:29 | ED.GENMED ---
History of Present Illness
General
Chief Complaint: Dizziness
Source: patient
Time Seen by Provider: 02/18/25 11:19
History of Present Illness
History of Present Illness:
Note:
CHIEF COMPLAINT(S)
Dizziness and peripheral tingling in fingers.
HISTORY OF PRESENT ILLNESS
The patient is a 69-year-old female with a history of insulin-dependent diabetes who presents with dizziness. The dizziness began after she took a dose of Tizanidine at 5 AM for muscle spasms, accompanied by two Tylenol tablets. The patient notes
awareness that Tizanidine can lower blood pressure, and she experienced significant dizziness which made her feel as if the whole room was spinning. She did not lose consciousness but fell asleep after the event. Upon waking at 9 AM, she again felt
dizzy. She managed to get up slowly with the aid of a walker to let her dog out. She describes the dizziness as persistent but less intense now, stating it feels like 'the whole room spinning around.' The patient denies headache, falls, head trauma,
alcohol consumption, or substance use. She experiences tingling in her left fingers related to frequent omid activity.
ADDITIONAL HISTORY OBTAINED FROM SOURCES OTHER THAN THE PATIENT
Per the patients brother, he was contacted by the patient around 9 AM after she awoke feeling dizzy.
CHRONIC MEDICAL CONDITIONS SIGNIFICANTLY AFFECTING CARE
The patient is diabetic and requires insulin administration three times per day plus a nighttime dose of Lantus.
EXTERNAL RECORDS REVIEWED
It was mentioned that the patient was admitted in October with a one-week episode of dizziness which might relate to her current symptoms.
SOCIAL DETERMINANTS AFFECTING HEALTH
The patient lives with a supportive family member and relies on her brother for assistance during episodes of acute dizziness.
MEDICATIONS
- Tizanidine for muscle spasms.
- Insulin, including Lantus at bedtime.
REVIEW OF SYSTEMS
- Cardiovascular: No chest pain.
- Neurologic: Dizziness experienced as a spinning sensation; tingling in left fingers; no headaches or visual disturbances such as double vision.
- Musculoskeletal: Difficulty moving lower extremities due to pain, but denies falls.
- General: No fever.
PHYSICAL EXAM
- Vital Signs: A febrile, blood pressure 123/72 mmHg. Nursing notes reviewed and vital signs reviewed.
- Cardiovascular: S3 and S4 heart sounds present.
- Neurologic: Movement in all extremities observed, with difficulty in lower extremities due to pain. CN II-XII intact, no ataxia
- Gastrointestinal: Abdomen soft and non-tender, no pulsatile masses noted.
PROBLEM LIST
Acute:
- Vertigo likely peripheral in origin.
- Tingling in fingers secondary to repetitive activity (crocheting).
Chronic:
- Diabetes mellitus.
- Muscle spasms.
PLAN
- Order a computerized tomography scan of the head to rule out cranial pathology such as a tumor.
- Request a physical therapy evaluation to assess the patients mobility and offer guidance for balance training and vertigo management.
DIFFERENTIAL DIAGNOSIS
The differential diagnosis includes, in no particular order and is not limited to:
1. Peripheral vertigo
2. Benign paroxysmal positional vertigo
3. Vestibular neuritis
4. Labyrinthitis
5. Hypoglycemia
6. Orthostatic hypotension
7. Medication side effect (Tizanidine)
8. Transient ischemic attack
9. Stroke
10. Diabetic neuropathy
CARE-UPDATE
02/18/25 - 13:56
CT scan results are normal; no signs of tumor or stroke. Prescribing Meclizine for dizziness, to be used as needed, but avoid before physical therapy sessions due to potential suppression of eye movements (nystagmus) necessary for therapy
evaluation. Marie recommended our preferred physical therapy group and will provide their contact information. Medications will be reviewed for interactions with Meclizine before prescription. Patients current medication intake verified as none today;
advised to take usual medications, including insulin, later. Patient has confirmed transportation arrangements.
Disposition:
DIAGNOSIS
- Peripheral vertigo (ICD-10: H81.4)
- Suspected benign paroxysmal positional vertigo (BPPV) on the left side
SUMMARY OF ENCOUNTER
The patient, a 69-year-old female, presented to the emergency department with complaints of dizziness, described as a spinning sensation. She has a history of insulin-dependent diabetes and experienced these symptoms following the ingestion of
Tizanidine for muscle spasms. The dizziness was suspected to be peripheral vertigo, specifically benign paroxysmal positional vertigo (BPPV) on the left side, as confirmed after discussion with physical therapy and the results of vestibular testing.
DISPOSITION
Discharged home.
ASSESSMENT
The presentation of dizziness with a spinning sensation is indicative of vertigo, likely peripheral in nature, specifically benign paroxysmal positional vertigo (BPPV) on the left side.
PLAN
- Prescribe Meclizine as needed to manage dizziness.
- Provide a prescription for physical therapy focusing on vestibular rehabilitation.
- Patient instructed to return if symptoms worsen or do not improve.
INDEPENDENT INTERPRETATION OF TESTS
- My independent interpretation of the vestibular testing suggests involvement of the left side, consistent with BPPV.
PATIENT EDUCATION AND COUNSELING
The patient was educated regarding the nature of BPPV and the role of physical therapy in alleviating symptoms.
FOLLOW-UP INSTRUCTIONS
- Follow up with physical therapy.
- Return to the emergency department if symptoms exacerbate or do not resolve.
MEDICATION RECONCILIATION
- Prescribed Meclizine for dizziness.
- Provided a prescription for physical therapy.
MEDICAL DECISION MAKING
Number and Complexity of Problems Addressed: The patient presented with acute dizziness likely due to vertigo, with a differential diagnosis of BPPV.
Risk: Consideration was given to the patients social support, given her reliance on a family member for assistance. The decision to discharge with follow-up care in the outpatient setting was informed by her stable condition.
Past History
Past History
ED Past Medical History: HTN, Hypercholesterolemia and Other (Obesity. Ambulatory dysfunction)
ED Past Surgical History: None
Patient has exhibited threatening behavior?: No
Social History
Tobacco: Non-smoker
Alcohol: None
Drug: None
Living: with family
Employment: Employed
Phy Exam
Physical Exam
Physical Exam:
.
Course
Orders/Labs/Results
Orders:
Orders
02/18/25 10:09
EKG [Electrocardiogram (*1)] Urgent
Reason for Study: Vertigo / Dizzy
EKG- Treatment ONCE
02/18/25 10:17
Complete Blood Count/With Diff Urgent
Comprehensive Metabolic Panel Urgent
02/18/25 11:44
CT Head W/o Iv Contrast Urgent
Comment:
Reason For Exam: dizziness
Physical Therapy Consult [Pt Eval And Treat] Urgent
Treatment: vestibular eval
Activity Level: Ambulate
Abnormal Lab Results
02/18/25
10:17
MPV 11.0 H fL
(7.4-10.4)
Absolute Monos (auto) 0.7 H 10^3/uL
(0.1-0.6)
Monocytes % 12.9 H %
(1.7-9.3)
Chloride 110 H mmol/L
(98-107)
Carbon Dioxide 21 L mmol/L
(22-30)
BUN 21 H mg/dl
(7-17)
Glucose 198 H mg/dl
(70-99)
Total Bilirubin 1.5 H mg/dl
(0.2-1.3)
02/18/25 10:17
02/18/25 10:17
Vital Signs
Initial and Last Documented VS:
Initial Vital Signs
Temp Pulse Resp BP Pulse Ox
97.8 F 65 26 130/89 99
02/18/25 10:06 02/18/25 10:06 02/18/25 10:06 02/18/25 10:06 02/18/25 10:06
Last Documented Vital Signs
Temp Pulse Resp BP Pulse Ox
97.8 F 67 16 135/108 100
02/18/25 10:06 02/18/25 12:01 02/18/25 12:07 02/18/25 12:01 02/18/25 11:30
*Pulse Oximetry
Patient hypoxic: no (100)
*EKG
Interpreted by ED Provider?: Yes
EKG Intrepretation Date: 02/18/25
EKG Intrepretation Time: 10:12
Interpretation: abnormal
Comparison EKG: changes noted
Heart Rate: 61
Rate: normal
Rhythm: sinus
[place]: left axis deviation
Interval: normal interval
QRS Pattern: normal QRS
Ischemia: no ischemia
*Critical Care Note
Total Time (30-74mins, 75-104mins- exclusive of procedures): Not Applicable
ED Attending Note
-
Portions of this chart may have been created with voice recognition software.� Occasional wrong word or��sound alike� substitutions may have occurred due to the inherent limitations of voice recognition software.
Discharge Plan
Departure
Patient Disposition: Home (Routine Discharge)
Date of Disposition: 02/18/25
Time of Disposition: 14:02
Patient with high blood pressure during this ER visit?: Yes
Condition: Good
Discharge Problem:
Vertigo
Instructions: Vertigo (a Type of Dizziness) (DC), BLOOD PRESSURE
Prescriptions:
New
meclizine 25 mg tablet
25 mg PO TID PRN (Reason: dizziness) Qty: 10 0RF
No Action
therapeutic multivitamin Tablet
1 tab PO DAILY
atorvastatin 10 mg Tablet
10 mg PO DAILY
lisinopril 5 mg Tablet
5 mg PO HS
furosemide 40 mg Tablet
40 mg PO DAILY Qty: 30 0RF
lidocaine 4 % Adhesive Patch,Medicated
2 patch topical DAILY Qty: 30 0RF
Rx Instructions:
Lower Back
tizanidine 2 mg Tablet
4 mg PO TID Qty: 42 0RF
cholecalciferol (vitamin D3) [Vitamin D3] 10 mcg (400 unit) Tablet
10 mcg PO DAILY Qty: 30 0RF
insulin aspart U-100 [Novolog FlexPen U-100 Insulin] 100 unit/mL (3 mL) insulin pen
8 unit SC TID Qty: 0 0RF
acetaminophen [Tylenol] 325 mg Tablet
650 mg PO Q4HPRN PRN (Reason: mild pain)
magnesium hydroxide [Milk of Magnesia] 400 mg/5 mL Suspension
2,400 mg PO DAILYPRN PRN (Reason: if no bm by 3rd day)
bisacodyl [Dulcolax (bisacodyl)] 10 mg Suppository
10 mg PA DAILYPRN PRN (Reason: if no bm aftr mom)
Fleet Enema 19-7 gram/118 mL Enema
118 ml PA DAILYPRN PRN (Reason: if no bm aftr dulcolax)
duloxetine [Cymbalta] 30 mg Capsule,Delayed Release(Dr/Ec)
30 mg PO DAILY
Analgesic [place] (m.salic-menth) 15-10 % cream
1 applic topical QID
insulin glargine [Lantus Solostar U-100 Insulin] 100 unit/mL (3 mL) insulin pen
10 unit SC HS
prednisone 10 mg Tablet
See Rx Instructions .ROUTE .COMPLEX Qty: 22 0RF
Rx Instructions:
Take By Mouth:
40 mg daily x1 day, 30 mg daily x3 days,
20 mg daily x3 days, 10 mg daily x3 days.
pantoprazole 40 mg Tablet,Delayed Release (Dr/Ec)
40 mg PO DAILY Qty: 10 0RF
Eliquis 5 mg tablet
See Rx Instructions .ROUTE .COMPLEX Qty: 180 0RF
Rx Instructions:
10 mg twice a day through 10/28/24
Then reduce to maintenance dose 5 mg twice a day from then on
tramadol 50 mg tablet
50 mg PO Q6H PRN (Reason: moderate severe pain) Qty: 20 0RF
miconazole nitrate [Miconazorb AF] 2 % Powder
1 applic topical BID Qty: 85 0RF
Rx Instructions:
Bilateral skin groin folds for MASD (moisture-associated Skin damage)
Referrals:
Shameka Lenz DO [Family Provider, Internal Medicine] - Call in 1-3 days for appt
Interventions
Interventions:
*Risk Screen - Suicide Last Done: 02/18/25 10:49
*General Assessment Last Done: 02/18/25 10:49
*Neglect/Abuse Screening Last Done: 02/18/25 10:49
*ED- Fall Risk Assessment Last Done: 02/18/25 10:49
*ED COVID-19 Vaccine History Last Done: 02/18/25 10:49
ED- Neurological Assessment Last Done: 02/18/25 11:10
ED Swallowing Screen Last Done: 02/18/25 11:10
Discharge Date and Time
Print Language: [id number]
[2025-02-18 12:01] VITALS: BP 135/108
[2025-02-18 12:46] VITALS: BP 135/108; PULSE 64
[2025-02-18 14:03] VITALS: BP 135/92
== END 2025-02-18 14:37 | disposition home or self-care (01) ==
LOC: EMR 10:00
PROVIDERS: Emergency Medicine; EMERGENCY PHYSICIAN Emergency Medicine; FAMILY PHYSICIAN Internal Medicine
DX: R42 Dizziness and giddiness (principal); R20.2 Paresthesia of skin; M62.838 Other muscle spasm; E11.9 Type 2 diabetes mellitus without complications; E66.9 Obesity, unspecified; I10 Essential (primary) hypertension; E78.00 Pure hypercholesterolemia, unspecified; R26.9 Unspecified abnormalities of gait and mobility; Z79.4 Long term (current) use of insulin; Z88.1 Allergy status to other antibiotic agents; Z88.5 Allergy status to narcotic agent; Z88.2 Allergy status to sulfonamides; Z88.8 Allergy status to other drugs, medicaments and biological substances
CPT/HCPCS: 99284; 70450; 80053; 85025; 93005

== ENCOUNTER → 2025-04-19 12:28 | Outpatient (REF) | payer MEDICARE, SELFPAY | LOC: RAD 12:28 | PROVIDERS: ATTENDING PHYSICIAN Internal Medicine Critical Care Medicine; FAMILY PHYSICIAN Internal Medicine | DX: I26.99 Other pulmonary embolism without acute cor pulmonale (principal); Z86.718 Personal history of other venous thrombosis and embolism | CPT/HCPCS: 71275; 93970; Q9967 ==

== ENCOUNTER → 2025-05-04 10:28 | Outpatient (REF) | payer MEDICARE, SELFPAY | LOC: RAD 10:28 | PROVIDERS: ATTENDING PHYSICIAN Internal Medicine Critical Care Medicine | DX: E04.1 Nontoxic single thyroid nodule (principal) | CPT/HCPCS: 76536 ==

== ENCOUNTER → 2025-05-30 14:11 | Outpatient (REF) | payer MEDICARE, SELFPAY ==
[2025-05-30 14:20] VITALS: BP 127/79; BP_SYST 99
== END ==
LOC: RADI 14:11
PROVIDERS: ATTENDING PHYSICIAN Internal Medicine Hematology & Oncology; FAMILY PHYSICIAN Internal Medicine
DX: E04.1 Nontoxic single thyroid nodule (principal)
CPT/HCPCS: 10005; 88173